=== PATIENT | male | born 1950 | race Caucasian/White ===

== ENCOUNTER 2017-07-29 04:39 | Inpatient (IN) | payer OTHER ==
[2017-07-29] VITALS (8 sets, daily range): BP systolic 116–151; BP diastolic 67–77; PULSE 65–76; TEMP 35–37; O2SAT 93–98; Ht 170.2 cm; Wt 78.6 kg
[~2017-07-29] VITALS: Ht 170.2 cm; Wt 78.6 kg
[2017-07-29] MEDS ORDERED: SODIUM CHLORIDE 0.9% 1000ML 1,000 ML IV STA (04:57)
[2017-07-29] MEDS ORDERED: SODIUM CHLORIDE 0.9% 500ML 500 ML IV STA (04:57)
[2017-07-29] MEDS ORDERED: PANTOprazole INJ 80 MG in DEXTROSE 5% 100ML 100 ML IV SCH (05:15)
[2017-07-29 05:24] LABS: BASO % 0.3 %; BASO ABS # 0.03 K/uL (0-0.2); EOS % 1.2 %; HEMATOCRIT 24.2 % (42-52); IG% 0.5 %; LYMPH % 11.1 %; LYMPH ABS # 1.33 K/uL (1.2-3.4); MEAN CELL VOLUME 84.6 fL (80-100); MEAN CORPUSCULAR HEMOGLOBIN 29.4 pg (25-34); MEAN CORPUSCULAR HGB CONC 34.7 g/dl (32-36); MEAN PLATELET VOLUME 8.2 fL (7.4-10.4); MONO % 8.3 %; NEUT % 78.6 %; PLATELET COUNT 217 K/uL (130-400); RED BLOOD COUNT 2.86 M/uL (4.7-6.1); WHITE BLOOD COUNT 11.99 K/uL (4.8-10.8)
[2017-07-29 05:41] LABS: ALT/SGPT 25 U/L (12-78); AST/SGOT 12 U/L (15-37); BLOOD UREA NITROGEN 30 mg/dl (7-18); BUN/CREATININE RATIO 27.2 (10-20); CALCIUM 7.8 mg/dl (8.5-10.1); CARBON DIOXIDE 28 mmol/L (21-32); CHLORIDE 108 mmol/L (98-107); GLUCOSE 166 mg/dl (70-99); MAGNESIUM 1.7 mg/dl (1.8-2.4); SODIUM 141 mmol/L (136-145)
[2017-07-29 05:43] LABS: ALKALINE PHOSPHATASE 108 U/L (45-117)
[2017-07-29 05:45] LABS: COMPLETE YES
[2017-07-29] MEDS ORDERED: GLC/500 PO (06:00)
[2017-07-29] MEDS ORDERED: LOSA50TA6 PO (06:00)
[2017-07-29] MEDS ORDERED: AMLO-110 PO (06:00)
[2017-07-29] MEDS ORDERED: HYDR25TA4 PO (06:00)
[2017-07-29] MEDS ORDERED: CHOL400C7 PO (06:00)
--- NOTE | 2017-07-29 06:01 | EMERGENCY ROOM VISIT NOTE ---
History Report prepared by Jeremy: Andre Rdz Under the Supervision of: Dr. Do Lindsay M.D. First contact with patient: 04:41 Chief Complaint: SYNCOPE Stated Complaint: SYNCOPE History of Present Illness The patient is a 66 year old male who presents to the Emergency Room by EMS with complaints of a syncopal episode occurring shortly prior to arrival. The patient currently complains of dizziness. He notes that he had diarrhea the past several days and states that he saw a large amount of "bright red" blood in his stool today. The patient states that he has had problems with rectal bleeding and hemorrhoids for several years. He states that he typically has an episode of rectal bleeding that fills most of the toilet bowel "a few times a year". He denies any vomiting or nausea. The patient states that he has not been drinking a lot of water recently, but has been eating normally. He has never required a blood transfusion in the past. Source of History: patient Onset: Shortly prior to arrival Quality: other (syncope) Timing: other (episode) Associated Symptoms: + hematochezia, + diarrhea, No nausea, No vomiting Note: The patient currently complains of dizziness. Review of Systems See HPI for pertinent positives & negatives. A total of 10 systems reviewed and were otherwise negative. Past Medical & Surgical Medical Problems: (1) Hemorrhoids (2) UGIB (upper gastrointestinal bleed) Family History No pertinent family history stated. Social History Marital Status: Housing Status: lives with significant other Current/Historical Medications Scheduled Amlodipine (Norvasc), 5 MG PO DAILY Cholecalciferol (Vitamin D 400 Iu), 400 INTER.UNIT PO DAILY Hydrochlorothiazide (Hctz), 25 MG PO DAILY Losartan Potassium (Cozaar), 50 MG PO DAILY Metformin Hcl (Glucophage), 500 MG PO BID Allergies Coded Allergies: No Known Allergies (Unverified , 07/29/17) Physical Exam Vital Signs Date Time Temp Pulse Resp B/P (MAP) Pulse Ox O2 Delivery O2 Flow Rate FiO2 07/29/17 05:24 62 14 07/29/17 05:10 76 16 145/72 07/29/17 05:10 145/72 07/29/17 05:09 78 135/72 07/29/17 05:09 132/72 135/72 07/29/17 05:08 70 132/72 07/29/17 04:49 94 Room Air 07/29/17 04:44 66 07/29/17 04:44 36.7 67 16 114/65 94 Room Air 07/29/17 04:42 114/65 Physical Exam Vital signs reviewed. General: Well-appearing male, in no significant distress. HEENT: No scleral icterus, Pale conjunctiva, PERRLA, neck supple. Atraumatic. Cardiovascular: Regular rate and rhythm, no extra sounds. Pulmonary: Clear to auscultation bilaterally, normal work of breathing. Abdomen: Soft, nontender, nondistended, positive bowel sounds. Rectal: Normal rectal mucosa. Melanotic stool. Heme positive. Musculoskeletal: Atraumatic, no peripheral edema. Neurologic: Patient awake alert and oriented x 3, full strength in all 4 extremities. Cranial nerves 2 through 12 grossly intact. Skin: Warm, dry, no rash Medical Decision & Procedures Laboratory Results Test 07/29/17 04:10 07/29/17 05:07 07/29/17 05:14 Estimated Average Glucose 131 mg/dl Hemoglobin A1c 6.2 % (4.5-5.6) Hepatitis C Antibody Screen NEG (NEG) Bedside Troponin I < 0.030 ng/ml (0-0.045) RDW Standard Deviation 38.9 fL (36.4-46.3) RDW Coefficient of Variation 12.6 % (11.5-14.5) White Blood Count 11.99 K/uL (4.8-10.8) Red Blood Count 2.86 M/uL (4.7-6.1) Hemoglobin 8.4 g/dL (14.0-18.0) Hematocrit 24.2 % (42-52) Mean Corpuscular Volume 84.6 fL (80-100) Mean Corpuscular Hemoglobin 29.4 pg (25-34) Mean Corpuscular Hemoglobin Concent 34.7 g/dl (32-36) Platelet Count 217 K/uL (130-400) Mean Platelet Volume 8.2 fL (7.4-10.4) Neutrophils (%) (Auto) 78.6 % Lymphocytes (%) (Auto) 11.1 % Monocytes (%) (Auto) 8.3 % Eosinophils (%) (Auto) 1.2 % Basophils (%) (Auto) 0.3 % Neutrophils # (Auto) 9.44 K/uL (1.4-6.5) Lymphocytes # (Auto) 1.33 K/uL (1.2-3.4) Monocytes # (Auto) 0.99 K/uL (0.11-0.59) Eosinophils # (Auto) 0.14 K/uL (0-0.5) Basophils # (Auto) 0.03 K/uL (0-0.2) Immature Granulocyte % (Auto) 0.5 % Immature Granulocyte # (Auto) 0.06 K/uL (0.00-0.02) Red Blood Cell Morphology Unremarkable Prothrombin Time 10.2 SECONDS (9.0-12.0) Prothromb Time International Ratio 1.0 (0.9-1.1) Activated Partial Thromboplast Time 23.6 SECONDS (21.0-31.0) Partial Thromboplastin Ratio 0.9 Est Creatinine Clear Calc Drug Dose 66.6 ml/min Magnesium Level 1.7 mg/dl (1.8-2.4) Total Bilirubin 0.5 mg/dl (0.2-1) Direct Bilirubin < 0.1 mg/dl (0-0.2) Aspartate Amino Transf (AST/SGOT) 12 U/L (15-37) Alanine Aminotransferase (ALT/SGPT) 25 U/L (12-78) Alkaline Phosphatase 108 U/L (45-117) Troponin I < 0.015 ng/ml (0-0.045) Total Protein 5.1 gm/dl (6.4-8.2) Albumin 2.7 gm/dl (3.4-5.0) Thyroid Stimulating Hormone (TSH) 1.860 uIu/ml (0.300-4.500) Laboratory results per my review. Medications Administered Medications (Trade) Dose Ordered Sig/Sotero Route Start Time Stop Time Status Last Admin Dose Admin Sodium Chloride 500 ml @ 999 mls/hr Q31M STAT IV 07/29/17 04:57 07/29/17 05:27 DC 07/29/17 04:57 999 MLS/HR Sodium Chloride 1,000 ml @ 200 mls/hr Q5H STAT IV 07/29/17 04:57 07/29/17 08:07 DC 07/29/17 04:57 200 MLS/HR Pantoprazole Sodium 80 mg/ Dextrose 120 ml @ 400 mls/hr NOW IV 07/29/17 05:15 07/29/17 08:07 DC 07/29/17 05:48 400 MLS/HR Sodium Chloride 1,000 ml @ 60 mls/hr [id number] IV 07/29/17 06:35 08/28/17 06:34 07/30/17 00:03 60 MLS/HR ECG Indication: syncope Rate (beats per minute): 67 Rhythm: normal sinus Findings: no acute ischemic change, no ectopy, other (Non-specific T-wave flattening in the inferior and lateral leads. ) Comparison ECG Date: no prior available ED Course 0500: Past medical records reviewed. The patient was evaluated in room B12B. A complete history and physical examination was performed. Ordered Sodium Chloride 1000 ml @ 200 mls/hr IV, Sodium Chloride 500 ml @ 999 mls/hr IV. 0515: Ordered Pantoprazole Sodium 80 mg/Dextrose 120 mL @ 400 mL/hr IV. 0555: Upon reevaluation, the patient is resting comfortably. I discussed laboratory and radiographic results with him. He verbalized agreement of the treatment plan. I spoke with Dr. Goff of the [facility]. The patient will be evaluated for further management and care. Medical Decision Differential diagnosis: Etiologies such as diverticulosis, AVM, coagulopathy, colitis, inflammatory bowel disease, malignancy, Perla-William tear, esophagitis, peptic ulcer disease , variceal bleed, gastritis, epistaxis, fissure, hemorrhoids, as well as others were entertained. This patient was evaluated and appeared to be in no significant distress. Patient's physical examination is consistent with melanotic guaiac positive stool. Patient states he does have episodes 3-4 times a day year with blood in the toilet after a BM. He believed it was related to hemorrhoids. I suspect the patient is suffering from an upper GI bleed. He is type and cross for 2 units to hold. IV Protonix 80 mg was given as well as IV normal saline solution. The patient was informed of the findings. He was evaluated by the hospitalist service for further management. Consults Time Called: [phone] Consulting Physician: Dr. Denver Kyle Returned Call: [phone] I reviewed the patient's case with Dr. Goff. Charisma will evaluate the patient for further management. Impression Primary Impression: Upper GI bleed Additional Impression: Syncope Scribe Attestation The scribe's documentation has been prepared under my direction and personally reviewed by me in its entirety. I confirm that the note above accurately reflects all work, treatment, procedures, and medical decision making performed by me. Departure Information Dispostion Being Evaluated By Hospitalist Patient Instructions [facility] Problem Qualifiers
[2017-07-29 06:44] LABS: PARTIAL THROMBOPLASTIN RATIO 0.9; PROTHROMBIN TIME (PATIENT) 10.2 SECONDS (9.0-12.0)
[2017-07-29] MEDS ORDERED: GLUCOSE 10 TABS/TUBE PO PRN (06:45)
[2017-07-29] MEDS ORDERED: GLUCOSE 40% GEL 15 GM TUBE PO PRN (06:45)
[2017-07-29] MEDS ORDERED: ACETAMINOPHEN 325 MG TAB PO PRN (06:45)
[2017-07-29] MEDS ORDERED: GLUCAGON FOR INJ 1 MG VIAL SQ PRN (06:45)
[2017-07-29] MEDS ORDERED: NITROGLYCERIN 0.4 MG SL PER TAB CHARGE SL PRN (06:45)
[2017-07-29] MEDS ORDERED: DEXTROSE 50% 50 ML SYR IV PRN (06:45)
[2017-07-29] MEDS ORDERED: LORAZEPAM 2 MG/ML 1 ML VIAL IV PRN (06:45)
[2017-07-29] MEDS ORDERED: ONDANSETRON INJ 2 MG/ML 2 ML VIAL IV PRN (06:45)
[2017-07-29] MEDS ORDERED: TRAMADOL HCL 50 MG TAB PO PRN (06:45)
[2017-07-29 07:25] LABS: ESTIMATED AVERAGE GLUCOSE 131 mg/dl; HA1C FLAG Normal (Normal)
--- NOTE | 2017-07-29 07:53 | DIAGNOSTIC IMAGING REPORT ---
HEAD CT NONCONTRAST CT DOSE: 690.05 mGycm HISTORY: syncope, lightheadedness TECHNIQUE: Multiaxial CT images of the head were performed without the use of intravenous contrast. Automated exposure control was utilized for this study. A dose lowering technique was utilized adhering to the principles of ALARA. Comparison: None. Findings: The paranasal sinuses and mastoid air cells are clear. The calvarium and skull base are intact. The ventricles and sulci are within normal limits. There is no mass, hematoma, midline shift, or acute infarct. Impression: No acute intracranial abnormality. Electronically signed by: Virgilio Tsang M.D. 07/29/2017 7:52 AM Dictated Date/Time: 07/29/2017 7:43 AM
--- NOTE | 2017-07-29 08:09 | HISTORY & PHYSICAL EXAMINATION ---
DATE OF ADMISSION: 07/29/2017 PRIMARY CARE PHYSICIAN: Dr. Morfin. CHIEF COMPLAINT: Syncope, dark tarry stools. HISTORY OF PRESENT ILLNESS: Medical history is significant for hypertension, prediabetes. hx colonic diverticulosis and polyps. Few days history of illness, dark tarry stools, no chest pain, no shortness of breath, lightheadedness. No abdominal pain. Denies inordinate weight loss. Patient went to the bathroom this morning. Px felt lightheaded ,passed out for about a minute when he tried to get up from the commode. Fell backwards. No incontinence, no tongue biting. Patient brought to the Emergency Room. Protonix bolus given for UGIB. MEDICAL HISTORY: In 2014, colonoscopy showed polyps, diverticulosis. HOME MEDICATIONS: Include, OTC aspirin daily, amlodipine, metformin, losartan, HCTZ, vitamin B. ALLERGIES: No known drug allergies. FAMILY HISTORY: Hypertension. PERSONAL AND SOCIAL HISTORY: Nonsmoker. No EtOH intake, Retired group insurance specialist. REVIEW OF SYSTEMS: As per HPI, all other ROS negative. PHYSICAL EXAMINATION: VITAL SIGNS: Blood pressure was noted to be 135/72, pulse rate 70, RR 16, temperature 36.7, sats 94 on room air. Orthostatic vitals negative. GENERAL: Noted to be pleasant, no respiratory distress. SKIN: Pallor. HEENT: Pale palpebral conjunctivae. Dry mucosa. Alopecia. NECK: No JVD. Supple. CHEST: Clear to auscultation. HEART: Regular rate and rhythm. ABDOMEN: Soft. EXTREMITIES: No edema, no tenderness. NEUROLOGIC: No gross focality. LABORATORY DATA: Hemoglobin was noted to be 8.4, hematocrit 34.2, white cell count 11.9, platelets 217. Sodium 140, potassium 4, chloride 108, CO2 28, BUN 30, creatinine 1.1, glucose 106 Hemoglobin A1c from March 2017 was 6.3. ASSESSMENT: 1. painless Upper gastrointestinal bleed, differentials include : PUD, abn blood vessels, tumor 2. Symptomatic anemia secondary to above. 3. Syncope secondary to hypovolemia albeit negative orthostatic vitals Rule out cardiac dysfunction Hx colonic diverticulosis, polyposis 4. Hypertension, stable. 5. Prediabetes. PLAN: PCU PPI drip for UGIB. GI consult. RE UGIB Transfuse packed RBCs for symptomatic anemia. Anemia workup. Hold home aspirin. TTE re syncope DVT prophylaxis, SCDs RE UGIB Full code. MTDD
[2017-07-29] MEDS ORDERED: MAGNESIUM SULFATE 1GM / D5W 1 GM in PREMIXED IN D5W 100 ML IV ONE (08:30)
[2017-07-29] MEDS: SODIUM CHLORIDE 0.45% 1000ML 1,000 ML IV SCH (09:05)
[2017-07-29] MEDS: AMLODIPINE BESYLATE 5 MG TAB PO SCH (09:06)
[2017-07-29] MEDS: PANTOprazole INJ 40 MG in DEXTROSE 5% 100ML 100 ML IV SCH ×2 (09:56→13:53)
[2017-07-29] MEDS ORDERED: INFLUENZA ADMINISTRATION CHARGE ONE (10:00)
[2017-07-29] MEDS ORDERED: INFLUENZA VACCINE HIGH DOSE 65+ 0.5 ML SYR IM. ONE (10:00)
--- NOTE | 2017-07-29 11:01 | ECHOCARDIOGRAM REPORT ---
*NOTICE TO RECEIVING [employer]Y This information is strictly Confidential and protected under [place] law. [place] law prohibits you from making any further disclosure of this information unless further disclosure is expressly permitted by the written consent of the person to whom it pertains or is authorized by law. A general authorization for the release of medical or other information is not sufficient for this purpose. Hospital accepts no responsibility if the information is made available to any other person, INCLUDING THE PATIENT. Interpretation Summary * Name: EDILSON GARCIA Study Date: 07/29/2017 08:11 AM BP: 145/72 mmHg * [facility] HR: 66 * : 1950 (M/d/yyyy) Gender: Male Height: 67 in * Age: 66 yrs Ethnicity: [place] Weight: 185 lb * Ordering Physician: Edilson Goff * Performed By: Gudelia Vale * * Reason For Study: SYNCOPE * BSA: 2.0 m2 * -- Conclusions -- * The left ventricle is normal in size. * There is moderate concentric left ventricular hypertrophy. * The left ventricular wall motion is normal. * Left ventricular systolic function is normal. * Ejection Fraction = 60-65%. * Grade I diastolic dysfunction, (abnormal relaxation pattern). * There is no vavlular disease Procedure Details * A complete two-dimensional transthoracic echocardiogram was performed (2D, M-mode, Doppler and color flow Doppler). Left Ventricle * The left ventricle is normal in size. * There is moderate concentric left ventricular hypertrophy. * Ejection Fraction = 60-65%. * Left ventricular systolic function is normal. * The left ventricular wall motion is normal. Right Ventricle * The right ventricle is normal in size and function. Atria * The left atrial size is normal. * Right atrial size is normal. * No ASD detected; PFO is not assessed. Mitral Valve * The mitral valve anatomy is normal. * There is no mitral valve stenosis. * There is trace mitral regurgitation. Tricuspid Valve * The tricuspid valve anatomy is normal. * There is no tricuspid stenosis. * There is trace tricuspid regurgitation. Aortic Valve * The aortic valve is trileaflet. * No hemodynamically significant valvular aortic stenosis. * No aortic regurgitation is present. Pulmonic Valve * The pulmonic valve is not well visualized. Great Vessels * The aortic root is normal size. Pericardium/Pleural * There is no pericardial effusion. Great Vessels * Normal inferior vena cava diameter and respiratory variation suggests normal central venous pressure. Left Ventricular Diastolic Function * Grade I diastolic dysfunction, (abnormal relaxation pattern). MMode 2D Measurements and Calculations IVSd 2.0 cm IVSs 2.8 cm LVIDd 4.7 cm LVIDs 3.3 cm LVPWd 1.3 cm LVPWs 1.8 cm IVS/LVPW 1.6 FS 29.6 % EDV(Teich) 101.9 ml ESV(Teich) 44.2 ml EF(Teich) 56.6 % EDV(cubed) 103.3 ml ESV(cubed) 36.0 ml EF(cubed) 65.1 % % IVS thick 38.1 % % LVPW thick 40.2 % LV mass(C)d 336.4 grams LV mass(C)dI 172.0 grams/m\S\2 LV mass(C)s 374.7 grams LV mass(C)sI 191.6 grams/m\S\2 SV(Teich) 57.7 ml SI(Teich) 29.5 ml/m\S\2 SV(cubed) 67.3 ml SI(cubed) 34.4 ml/m\S\2 ACS 2.0 cm LA dimension 4.0 cm asc Aorta Diam 3.6 cm LVOT diam 2.0 cm LVOT area 3.3 cm\S\2 LVAd ap4 32.2 cm\S\2 LVLd ap4 8.3 cm EDV(MOD-sp4) 105.8 ml EDV(sp4-el) 106.5 ml LVAs ap4 18.6 cm\S\2 LVLs ap4 6.7 cm ESV(MOD-sp4) 43.5 ml ESV(sp4-el) 43.9 ml EF(MOD-sp4) 58.9 % EF(sp4-el) 58.8 % LVAd ap2 25.7 cm\S\2 LVLd ap2 7.8 cm EDV(MOD-sp2) 74.6 ml EDV(sp2-el) 72.3 ml LVAs ap2 15.4 cm\S\2 LVLs ap2 6.6 cm ESV(MOD-sp2) 30.0 ml ESV(sp2-el) 30.3 ml EF(MOD-sp2) 59.8 % EF(sp2-el) 58.2 % LVLd %diff -6.15 % EDV(MOD-bp) 92.2 ml LVLs %diff -1.43 % ESV(MOD-bp) 36.3 ml EF(MOD-bp) 60.7 % SV(MOD-sp4) 62.3 ml SI(MOD-sp4) 31.9 ml/m\S\2 SV(MOD-sp2) 44.6 ml SI(MOD-sp2) 22.8 ml/m\S\2 SV(MOD-bp) 56.0 ml SI(MOD-bp) 28.6 ml/m\S\2 SV(sp4-el) 62.6 ml SI(sp4-el) 32.0 ml/m\S\2 SV(sp2-el) 42.1 ml SI(sp2-el) 21.5 ml/m\S\2 Doppler Measurements and Calculations MV E max samira 55.0 cm/sec MV A max samira 109.5 cm/sec MV E/A 0.50 MV dec time 0.22 sec Ao V2 max 137.2 cm/sec Ao max PG 7.5 mmHg Ao max PG (full) 2.9 mmHg TIMOTEO(V,A) 2.6 cm\S\2 TIMOTEO(V,D) 2.6 cm\S\2 AI max samira 356.1 cm/sec AI max PG 50.7 mmHg AI dec slope 114.1 cm/sec\S\2 AI P1/2t 914.4 msec LV V1 max PG 4.6 mmHg LV V1 max 107.3 cm/sec PA V2 max 79.8 cm/sec PA max PG 2.5 mmHg TR max samira 250.3 cm/sec
[2017-07-29] MEDS: INSULIN ASPART 100 UNITS/ML 3 ML PEN SC SCH ×3 (12:00→20:31)
[2017-07-29 12:11] LABS: URINE APPEARANCE CLEAR (CLEAR); URINE BILIRUBIN NEG (NEG); URINE COLOR YELLOW; URINE NITRITE NEG (NEG); UROBILINOGEN NEG (NEG); ZZUR CULT IF INDIC CLEAN CATCH NO
[2017-07-29 12:14] LABS: MANUAL MICROSCOPIC REQUIRED? NO; REVIEW REQ? NO
--- NOTE | 2017-07-29 12:18 | Gastrointestinal Consultation ---
Gastrointestinal Consultation Date of Consultation: Jul 29, 2017 Attending Physician: Srikanth Montero Consulting Physician: Eric Mosqueda Reason for Consultation: UGI bleed History of Present Illness Patient is a 66 year old male w PMH of colon polyps, diverticulosis, HTN, DM who presented to ED w c/o dark tarry stools w bright red blood. 2 days ago he started to notice loose stools also of dark and tarry in characteristic. He said and granddaughter had the "flu" one developing pneumonia but he denies any URI symptoms. He denies any fever, chills, n/v, abd pain. He noticed bright red blood on top of stools recently. Denies any rectal pain or itching. Did have hx of hemorrhoidal bleed. This morning got up to bathroom, started to feel light headed, fell backwards and passed out ? a minute. Upon eval in ED, he was noted to be anemic, Hgb 8, baseline 15 in March. BUN up at 30. Some electrolyte imbalance including low Ca, Mg. Cr, LFTs normal. He is admitted, 1U PRBC transfusing, PPI bolus and gtt started, and made NPO for possible UGI bleeding. Head CT negative. He had Colonoscopy in 2014 w hyperplastic polyps removal, and diverticulosis but due to excessive looping, at hepatic flexure, scope can't be advanced. He later underwent virtual colonoscopy which was unremarkable. Prior to 2014, he also had hx of rectal bleeding, had colonoscopy in 2002 showing diverticulosis and hemorrhoids. Pt takes ASA 81mg daily, but denies NSAIDs, ETOH or tobacco abuses. + 10 lbs weight loss in 4 months, but he said this was intentional as told by PCP to lose weight. Past Medical/Surgical History Medical Problems: (1) Syncope Status: Acute (2) Upper GI bleed Status: Acute Past Medical History: See above. Past Surgical History: None per his report. Social History Smoking Status: Never Smoker Alcohol Use: occasionally Drug Use: none Marital Status: Housing Status: lives with significant other Allergies Coded Allergies: No Known Allergies (Unverified , 07/29/17) Current Medications Home Meds and Scripts Medications Dose Route/Sig Max Daily Dose Days Date Category Vitamin D 400 Iu (Cholecalciferol) 400 Unit Cap 400 Inter.unit PO DAILY 07/29/17 Reported Hctz (Hydrochlorothiazide) 25 Mg Tab 25 Mg PO DAILY 07/29/17 Reported Glucophage (Metformin Hcl) 500 Mg Tab 500 Mg PO BID 07/29/17 Reported Cozaar (Losartan Potassium) 50 Mg Tab 50 Mg PO DAILY 07/29/17 Reported Norvasc (Amlodipine Besylate) 5 Mg Tab 5 Mg PO DAILY 07/29/17 Reported Review of Systems Constitutional: No fever, No chills Respiratory: No cough, No shortness of breath Cardiac: No chest pain Abdomen: + see HPI, + diarrhea, + GI bleeding, No pain, No nausea, No vomiting Neuro: + see HPI Skin: No rash Physical Exam Date Time Temp Pulse Resp B/P (MAP) Pulse Ox O2 Delivery O2 Flow Rate FiO2 07/29/17 10:55 37.0 70 15 116/74 97 Room Air 07/29/17 10:55 37.0 65 15 116/74 97 07/29/17 10:25 36.8 69 16 116/72 95 07/29/17 09:55 36.8 69 16 123/75 95 07/29/17 09:40 35.0 70 18 118/67 95 07/29/17 09:25 36.4 76 18 117/75 07/29/17 07:54 36.6 70 18 132/75 (94) 95 Room Air 07/29/17 07:38 66 20 145/72 96 07/29/17 07:05 98 Room Air 07/29/17 06:43 65 16 140/72 98 Room Air 07/29/17 05:24 62 14 07/29/17 05:10 76 16 145/72 07/29/17 05:10 145/72 07/29/17 05:09 78 135/72 07/29/17 05:09 132/72 135/72 07/29/17 05:08 70 132/72 07/29/17 04:49 94 Room Air 07/29/17 04:44 66 07/29/17 04:44 36.7 67 16 114/65 94 Room Air 07/29/17 04:42 114/65 General Appearance: WD/WN, no apparent distress Eyes: normal inspection, PERRL, EOMI Neck: supple, no JVD, trachea midline Respiratory/Chest: normal breath sounds, no respiratory distress, no accessory muscle use Cardiovascular: regular rate, rhythm, no gallop, no murmur Abdomen: normal bowel sounds, non tender, soft, + pertinent finding (rectal exam by ED physician revealed melanotic stool; pt wants to defer repeat rectal exam ) Neurologic/Psych: alert, normal mood/affect, oriented x 3 Skin: normal color, no jaundice, no rash Laboratory Results Last 24 Hours Test 07/29/17 04:10 07/29/17 05:14 07/29/17 11:50 07/29/17 12:00 Estimated Average Glucose 131 mg/dl Hemoglobin A1c 6.2 % Hepatitis C Antibody Screen NEG White Blood Count 11.99 K/uL Red Blood Count 2.86 M/uL Hemoglobin 8.4 g/dL Hematocrit 24.2 % Mean Corpuscular Volume 84.6 fL Mean Corpuscular Hemoglobin 29.4 pg Mean Corpuscular Hemoglobin Concent 34.7 g/dl Platelet Count 217 K/uL Mean Platelet Volume 8.2 fL Neutrophils (%) (Auto) 78.6 % Lymphocytes (%) (Auto) 11.1 % Monocytes (%) (Auto) 8.3 % Eosinophils (%) (Auto) 1.2 % Basophils (%) (Auto) 0.3 % Neutrophils # (Auto) 9.44 K/uL Lymphocytes # (Auto) 1.33 K/uL Monocytes # (Auto) 0.99 K/uL Eosinophils # (Auto) 0.14 K/uL Basophils # (Auto) 0.03 K/uL RDW Standard Deviation 38.9 fL RDW Coefficient of Variation 12.6 % Immature Granulocyte % (Auto) 0.5 % Immature Granulocyte # (Auto) 0.06 K/uL Red Blood Cell Morphology Unremarkable Prothrombin Time 10.2 SECONDS Prothromb Time International Ratio 1.0 Activated Partial Thromboplast Time 23.6 SECONDS Partial Thromboplastin Ratio 0.9 Sodium Level 141 mmol/L Potassium Level 4.0 mmol/L Chloride Level 108 mmol/L Carbon Dioxide Level 28 mmol/L Anion Gap 5.0 mmol/L Blood Urea Nitrogen 30 mg/dl Creatinine 1.10 mg/dl Est Creatinine Clear Calc Drug Dose 66.6 ml/min Estimated GFR () 79.5 Estimated GFR (Non- 68.6 BUN/Creatinine Ratio 27.2 Random Glucose 166 mg/dl Calcium Level 7.8 mg/dl Magnesium Level 1.7 mg/dl Total Bilirubin 0.5 mg/dl Direct Bilirubin < 0.1 mg/dl Aspartate Amino Transf (AST/SGOT) 12 U/L Alanine Aminotransferase (ALT/SGPT) 25 U/L Alkaline Phosphatase 108 U/L Troponin I < 0.015 ng/ml Total Protein 5.1 gm/dl Albumin 2.7 gm/dl Thyroid Stimulating Hormone (TSH) 1.860 uIu/ml Impression Patient is a 66 year old male who presented w syncopal episode this AM, noted to be anemic w hx of diarrhea, melena & BRBPR. He had been treated w PPI bolus & gtt for suspected UGI bleed, made NPO and started on 1U PRBC transfusion. Hx of diverticular & hemorrhoidal diseases. DDX: diverticular/hermorrhoidal bleeding, infectious or ischemic colitis, PUD w bleeding ulcer, less likely AVMs or malignancy. Plan - Keep NPO for EGD today - Continue PPI gtt for now - Obtain stool cx and Cdiff given diarrhea and family being ill w "flu". - Will give further recs after EGD completed. - Monitor H/H and transfuse prn Attg addendu: I ireviewed chart and labs, interviewed and examined pt. Presentation concerning for UGIB. EGD today.
[2017-07-29 12:27] LABS: HEMATOCRIT 28.4 % (42-52)
[2017-07-29 12:59] LABS: FERRITIN 150.8 ng/ml (8.0-388.0)
--- NOTE | 2017-07-29 15:28 | GI REPORT ---
Procedure Date: 07/29/2017 3:10 PM Procedure: Upper GI endoscopy Indications: Melena Medicines: See the Anesthesia note for documentation of the administered medications Complications: No immediate complications. Estimated Blood Loss: Estimated blood loss: none. Procedure: Pre-Anesthesia Assessment: - ASA Grade Assessment: II - A patient with mild systemic disease. - After reviewing the risks and benefits, the patient was deemed in satisfactory condition to undergo the procedure. After obtaining informed consent, the endoscope was passed under direct vision. Throughout the procedure, the patient's blood pressure, pulse, and oxygen saturations were monitored continuously. The scope was introduced through the mouth, and advanced to the second part of duodenum. The upper GI endoscopy was accomplished without difficulty. The patient tolerated the procedure well. Findings: The examined esophagus was normal. The Z-line was found 37 cm from the incisors. There was a round gastric erosion in the antrum, suggestive of a healing gastric ulcer. 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 The stomach was otherwise normal. The erosion was biopsied, and random biopsies done from throughout the stomach to check for Hp. The duodenum was normal. Impression: -Erosion in stomach. Recommendation: - Discharge patient to floor. D/c PPI gtt and adv diet. Ok for d/c home tomorrow on once daily PPI if no evidence of further bleeding. Plan outpt cscopy and repeat EGD in 4 weeks. Eric Mosqueda M.D. Eric Mosqueda MD 07/29/2017 3:28:08 PM This report has been signed electronically. Note Initiated On: 07/29/2017 3:10 PM I attest to the content of the Intraoperative Record and orders documented therein, exceptions below
[2017-07-29] MEDS ORDERED: PROPOFOL IV EMULSION 10 MG/ML 20 ML VIAL IV ONE (15:31)
[2017-07-29] MEDS ORDERED: LIDOCAINE HCL 2% 2 ML VIAL (20MG/ML) ONE (15:31)
--- NOTE | 2017-07-29 16:07 | Anesthesiology Progress Note ---
Anesthesia Post Op Note Date & Time Jul 29, 2017 at 16:07 Vital Signs Pain Intensity: 0.0 Vital Signs Past 12 Hours Date Time Temp Pulse Resp B/P (MAP) Pulse Ox O2 Delivery O2 Flow Rate FiO2 07/29/17 15:58 66 16 119/70 (86) 95 Room Air 07/29/17 15:43 68 16 112/63 (79) 93 Room Air 07/29/17 15:28 72 16 106/56 (73) 95 Room Air 07/29/17 14:43 36.5 95 18 148/78 (101) 92 Room Air 95 07/29/17 12:30 Room Air 07/29/17 10:55 37.0 70 15 116/74 97 Room Air 07/29/17 10:55 37.0 65 15 116/74 97 07/29/17 10:25 36.8 69 16 116/72 95 07/29/17 09:55 36.8 69 16 123/75 95 07/29/17 09:40 35.0 70 18 118/67 95 07/29/17 09:25 36.4 76 18 117/75 07/29/17 07:54 36.6 70 18 132/75 (94) 95 Room Air 07/29/17 07:38 66 20 145/72 96 07/29/17 07:05 98 Room Air 07/29/17 06:43 65 16 140/72 98 Room Air 07/29/17 05:24 62 14 07/29/17 05:10 76 16 145/72 07/29/17 05:10 145/72 07/29/17 05:09 78 135/72 07/29/17 05:09 132/72 135/72 07/29/17 05:08 70 132/72 07/29/17 04:49 94 Room Air 07/29/17 04:44 66 07/29/17 04:44 36.7 67 16 114/65 94 Room Air 07/29/17 04:42 114/65 Notes Mental Status: alert / awake / arousable, participated in evaluation Pt Amnestic to Procedure: Yes Nausea / Vomiting: adequately controlled Pain: adequately controlled Airway Patency, RR, SpO2: stable & adequate BP & HR: stable & adequate Hydration State: stable & adequate Anesthetic Complications: no major complications apparent
[2017-07-29] MEDS ORDERED: NURSING VERBAL MED ORDER ONE (17:30)
--- NOTE | 2017-07-29 18:02 | Progress Note ---
Internal Med Progress Note Date of Service: Jul 29, 2017. Provider Documentation: SUBJECTIVE: Seen and examined at bedside Had EGD today Denies any more bleeding issues Denies CP/SOB/Abdominal pain/weakness/ change in vision Dizziness better Family at bedside OBJECTIVE: Vital Signs-as noted below Physical Exam: General Appearance:Moderately built and nourished, no apparent distress Head: normocephalic, Atraumatic Eyes: normal inspection, EOMI, PERRL Neck: supple, Trachea midline Respiratory/Chest: Normal breath sounds, CTA Cardiovascular: S1, S2, No murmur Abdomen/GI:Soft, Non tender, Bowel sounds present Extremities/Musculoskelatal:normal inspection, no edema Neurologic/Psych:grossly no focal neurological deficits Skin: normal color, warm Lab data as noted below. ASSESSMENT & PLAN: Upper GI bleeding: S/P EGD: Gastric erosion in antrum suggestive of healing gastric ulcer S/P 1 unit PRBC no bleeding issues currently Monitor Hb PPI GGT discontinued Continue PPI Q daily Planned for repeat EGD and colonoscopy in 4 weeks Appreciate GI help Syncope: Likely vasovagal/Hypovolemia CT head: no acute pathology Denies any neurological symptoms Negative orthostatics Monitor in Tele Hypertension: stable. Prediabetes: ISS, accu checks DVT Px: SCDs RE UGIB Code Status: Full code Disposition: Plan to discharge home when medically stable Vital Signs: Date Time Temp Pulse Resp B/P (MAP) Pulse Ox O2 Delivery O2 Flow Rate FiO2 07/29/17 16:15 Room Air 07/29/17 15:58 66 16 119/70 (86) 95 Room Air 07/29/17 15:43 68 16 112/63 (79) 93 Room Air 07/29/17 15:28 72 16 106/56 (73) 95 Room Air 07/29/17 14:43 36.5 95 18 148/78 (101) 92 Room Air 07/29/17 12:30 Room Air 07/29/17 10:55 37.0 70 15 116/74 97 Room Air 07/29/17 10:55 37.0 65 15 116/74 97 07/29/17 10:25 36.8 69 16 116/72 95 07/29/17 09:55 36.8 69 16 123/75 95 07/29/17 09:40 35.0 70 18 118/67 95 07/29/17 09:25 36.4 76 18 117/75 07/29/17 07:54 36.6 70 18 132/75 (94) 95 Room Air 07/29/17 07:38 66 20 145/72 96 07/29/17 07:05 98 Room Air 07/29/17 06:43 65 16 140/72 98 Room Air 07/29/17 05:24 62 14 07/29/17 05:10 76 16 145/72 07/29/17 05:10 145/72 07/29/17 05:09 78 135/72 07/29/17 05:09 132/72 135/72 07/29/17 05:08 70 132/72 07/29/17 04:49 94 Room Air 07/29/17 04:44 66 07/29/17 04:44 36.7 67 16 114/65 94 Room Air 07/29/17 04:42 114/65 Lab Results: Results Past 24 Hours Test 07/29/17 04:10 07/29/17 05:07 07/29/17 05:14 07/29/17 11:50 Range/Units Estimated Average Glucose 131 mg/dl Hemoglobin A1c 6.2 4.5-5.6 % Hepatitis C Antibody Screen NEG NEG Bedside Troponin I < 0.030 0-0.045 ng/ml White Blood Count 11.99 4.8-10.8 K/uL Red Blood Count 2.86 4.7-6.1 M/uL Hemoglobin 8.4 14.0-18.0 g/dL Hematocrit 24.2 42-52 % Mean Corpuscular Volume 84.6 80-100 fL Mean Corpuscular Hemoglobin 29.4 25-34 pg Mean Corpuscular Hemoglobin Concent 34.7 32-36 g/dl Platelet Count 217 130-400 K/uL Mean Platelet Volume 8.2 7.4-10.4 fL Neutrophils (%) (Auto) 78.6 % Lymphocytes (%) (Auto) 11.1 % Monocytes (%) (Auto) 8.3 % Eosinophils (%) (Auto) 1.2 % Basophils (%) (Auto) 0.3 % Neutrophils # (Auto) 9.44 1.4-6.5 K/uL Lymphocytes # (Auto) 1.33 1.2-3.4 K/uL Monocytes # (Auto) 0.99 0.11-0.59 K/uL Eosinophils # (Auto) 0.14 0-0.5 K/uL Basophils # (Auto) 0.03 0-0.2 K/uL RDW Standard Deviation 38.9 36.4-46.3 fL RDW Coefficient of Variation 12.6 11.5-14.5 % Immature Granulocyte % (Auto) 0.5 % Immature Granulocyte # (Auto) 0.06 0.00-0.02 K/uL Red Blood Cell Morphology Unremarkable Prothrombin Time 10.2 9.0-12.0 SECONDS Prothromb Time International Ratio 1.0 0.9-1.1 Activated Partial Thromboplast Time 23.6 21.0-31.0 SECONDS Partial Thromboplastin Ratio 0.9 Sodium Level 141 136-145 mmol/L Potassium Level 4.0 3.5-5.1 mmol/L Chloride Level 108 98-107 mmol/L Carbon Dioxide Level 28 21-32 mmol/L Anion Gap 5.0 3-11 mmol/L Blood Urea Nitrogen 30 7-18 mg/dl Creatinine 1.10 0.60-1.40 mg/dl Est Creatinine Clear Calc Drug Dose 66.6 ml/min Estimated GFR () 79.5 Estimated GFR (Non- 68.6 BUN/Creatinine Ratio 27.2 10-20 Random Glucose 166 70-99 mg/dl Calcium Level 7.8 8.5-10.1 mg/dl Magnesium Level 1.7 1.8-2.4 mg/dl Total Bilirubin 0.5 0.2-1 mg/dl Direct Bilirubin < 0.1 0-0.2 mg/dl Aspartate Amino Transf (AST/SGOT) 12 15-37 U/L Alanine Aminotransferase (ALT/SGPT) 25 12-78 U/L Alkaline Phosphatase 108 45-117 U/L Troponin I < 0.015 0-0.045 ng/ml Total Protein 5.1 6.4-8.2 gm/dl Albumin 2.7 3.4-5.0 gm/dl Thyroid Stimulating Hormone (TSH) 1.860 0.300-4.500 uIu/ml Urine Color YELLOW Urine Appearance CLEAR CLEAR Urine pH 5.0 4.5-7.5 Urine Specific [place] 1.020 1.000-1.030 Urine Protein NEG NEG Urine Glucose (UA) 1+ NEG Urine Ketones NEG NEG Urine Occult Blood NEG NEG Urine Nitrite NEG NEG Urine Bilirubin NEG NEG Urine Urobilinogen NEG NEG Urine Leukocyte Esterase NEG NEG Test 07/29/17 11:56 07/29/17 12:16 07/29/17 16:28 Range/Units Bedside Glucose 144 118 70-99 mg/dl Hemoglobin 9.9 14.0-18.0 g/dL Hematocrit 28.4 42-52 % Absolute Reticulocyte Count 0.08 0.02-0.10 10^6/uL Percent Reticulocyte Count 2.2 0.5-2.0 % Iron Level 49 35-175 mcg/dl Total Iron Binding Capacity 256 250-450 mcg/dl Transferrin 182 200-360 mg/dl Transferrin % Saturation 19 20-50 % Ferritin 150.8 8.0-388.0 ng/ml Vitamin B12 Level 206 211-911 pg/mL Folate 22.95 >5.38 ng/mL
[2017-07-29 19:38] LABS: HEMATOCRIT 27.2 % (42-52)
[2017-07-29] MEDS: LOSARTAN POTASSIUM 25 MG TAB PO SCH (20:51)
[2017-07-30] VITALS (10 sets, daily range): BP systolic 124–137; BP diastolic 70–84; PULSE 66–107; TEMP 36.8–37.4; O2SAT 91–98
[2017-07-30] MEDS: SODIUM CHLORIDE 0.45% 1000ML 1,000 ML IV SCH (00:03)
[2017-07-30] MEDS: INSULIN ASPART 100 UNITS/ML 3 ML PEN SC SCH ×4 (06:30→21:00)
[2017-07-30] MEDS ORDERED: NURSING VERBAL MED ORDER ONE (07:00)
[2017-07-30 07:26] LABS: BASO % 0.2 %; BASO ABS # 0.02 K/uL (0-0.2); EOS % 1.2 %; HEMATOCRIT 24.6 % (42-52); IG% 0.4 %; LYMPH % 15.8 %; LYMPH ABS # 1.44 K/uL (1.2-3.4); MEAN CELL VOLUME 83.7 fL (80-100); MEAN CORPUSCULAR HEMOGLOBIN 29.3 pg (25-34); MEAN PLATELET VOLUME 8.1 fL (7.4-10.4); MONO % 8.3 %; NEUT % 74.1 %; PLATELET COUNT 204 K/uL (130-400); RED BLOOD COUNT 2.94 M/uL (4.7-6.1); WHITE BLOOD COUNT 9.11 K/uL (4.8-10.8)
[2017-07-30 07:46] LABS: COMPLETE YES; TOXIC GRANULATION 1+
[2017-07-30] MEDS: AMLODIPINE BESYLATE 5 MG TAB PO SCH (07:48)
[2017-07-30] MEDS: LOSARTAN POTASSIUM 25 MG TAB PO SCH (07:48)
[2017-07-30] MEDS: PANTOprazole SOD 40 MG TAB PO SCH (07:48)
[2017-07-30 08:00] LABS: BUN/CREATININE RATIO 22.1 (10-20); CALCIUM 8.2 mg/dl (8.5-10.1); CREATININE 1.2 mg/dl (0.60-1.40); POTASSIUM 3.9 mmol/L (3.5-5.1)
--- NOTE | 2017-07-30 10:06 | Clinical Documentation Query ---
CLINICAL DOCUMENTATION QUERY 66 year old male who presents to the Emergency Room by EMS with complaints of a syncopal episode and rectal bleeding. EGD confirmed recent healing gastric erosion. Patient presented anemic requiring blood transfusion. In your clinical opinion is this patient being managed for: ( X ) Acute blood loss anemia treated with PRBC's and IVF's. ( ) Not Agree ( ) Other explanation of clinical findings (Please Explain) ( ) Unable to determine (Please Define) ( ) Need to Discuss The medical record reflects the following clinical findings, treatment, and risk factors. Clinical Indicators: As above. Hgb 8.4, Hct 24.2 Treatment: 1 unit of PRBC's, IVF's, GI consult, and EGD Risk Factors: Age, gastric ulcer, Please clarify and document your clinical opinion in the progress notes and discharge summary. Terms such as "probable", "suspected", "likely", "questionable", "possible", or "still to be ruled out" are acceptable. IF IN AGREEMENT, YOU MUST DOCUMENT ABOVE DIAGNOSTIC STATEMENT IN DAILY PROGRESS NOTES AND DISCHARGE SUMMARY. This document is not part of the patient's record. Thank You, Cristian Diaz, RN [phone]
--- NOTE | 2017-07-30 11:34 | Progress Note ---
Internal Med Progress Note Date of Service: Jul 30, 2017. Provider Documentation: SUBJECTIVE: Seen and examined at bedside Had 1 BM today which is black tarry mixed with bright red blood Denies diarrhea Feels tired Denies CP/SOB/Abdominal pain/weakness/ change in vision/dizziness Eager to get discharged Hb dropped from 9.6 to 8.6 today OBJECTIVE: Vital Signs-as noted below Physical Exam: General Appearance:Moderately built and nourished, no apparent distress Head: normocephalic, Atraumatic Eyes: normal inspection, EOMI, PERRL Neck: supple, Trachea midline Respiratory/Chest: Normal breath sounds, CTA Cardiovascular: S1, S2, No murmur Abdomen/GI:Soft, Non tender, Bowel sounds present Extremities/Musculoskelatal:normal inspection, no edema Neurologic/Psych:grossly no focal neurological deficits Skin: normal color, warm Lab data as noted below. ASSESSMENT & PLAN: Upper GI bleeding: Acute Blood Loss Anemia: S/P EGD: Gastric erosion in antrum suggestive of healing gastric ulcer S/P 1 unit PRBC Had 1 episode of bleeding per rectum this morning: likely old blood Monitor Hb: 8.6 today PPI GGT discontinued Continue PPI Q daily Bleeding scan as per GI Needs repeat EGD and colonoscopy in 4 weeks as outpatient Appreciate GI Input Syncope: Likely vasovagal/Hypovolemia CT head: no acute pathology Denies any neurological symptoms Negative orthostatics Monitor in Tele: No rhythm problems ECHO:as below Hypertension: stable. Prediabetes: ISS, accu checks DVT Px: SCDs RE UGIB Code Status: Full code Disposition: Plan to discharge home when medically stable PROCEDURES: ECHO: * The left ventricle is normal in size. * There is moderate concentric left ventricular hypertrophy. * The left ventricular wall motion is normal. * Left ventricular systolic function is normal. * Ejection Fraction = 60-65%. * Grade I diastolic dysfunction, (abnormal relaxation pattern). * There is no vavlular disease Vital Signs: Date Time Temp Pulse Resp B/P (MAP) Pulse Ox O2 Delivery O2 Flow Rate FiO2 07/30/17 15:52 37.0 85 22 136/84 (101) 97 Room Air 07/30/17 13:17 94 Room Air 07/30/17 13:10 37.1 75 20 126/73 (90) 94 Room Air 07/30/17 12:00 Room Air 07/30/17 11:09 36.8 83 18 125/70 (88) 95 Room Air 07/30/17 07:45 Room Air 07/30/17 07:23 37.0 74 18 124/74 (91) 98 Room Air 07/30/17 04:00 37.4 66 16 133/79 (97) 94 Room Air 07/30/17 04:00 Room Air 07/30/17 00:59 37.3 77 16 127/81 (96) 91 07/30/17 00:00 Room Air 07/29/17 20:00 Room Air 07/29/17 19:36 36.9 76 16 151/77 (101) 93 Room Air Lab Results: Results Past 24 Hours Test 07/29/17 19:29 07/29/17 20:20 07/30/17 07:05 07/30/17 07:32 Range/Units Hemoglobin 9.6 8.6 14.0-18.0 g/dL Hematocrit 27.2 24.6 42-52 % Bedside Glucose 143 139 70-99 mg/dl White Blood Count 9.11 4.8-10.8 K/uL Red Blood Count 2.94 4.7-6.1 M/uL Mean Corpuscular Volume 83.7 80-100 fL Mean Corpuscular Hemoglobin 29.3 25-34 pg Mean Corpuscular Hemoglobin Concent 35.0 32-36 g/dl Platelet Count 204 130-400 K/uL Mean Platelet Volume 8.1 7.4-10.4 fL Neutrophils (%) (Auto) 74.1 % Lymphocytes (%) (Auto) 15.8 % Monocytes (%) (Auto) 8.3 % Eosinophils (%) (Auto) 1.2 % Basophils (%) (Auto) 0.2 % Neutrophils # (Auto) 6.74 1.4-6.5 K/uL Lymphocytes # (Auto) 1.44 1.2-3.4 K/uL Monocytes # (Auto) 0.76 0.11-0.59 K/uL Eosinophils # (Auto) 0.11 0-0.5 K/uL Basophils # (Auto) 0.02 0-0.2 K/uL RDW Standard Deviation 40.0 36.4-46.3 fL RDW Coefficient of Variation 13.1 11.5-14.5 % Immature Granulocyte % (Auto) 0.4 % Immature Granulocyte # (Auto) 0.04 0.00-0.02 K/uL Toxic Granulation 1+ Red Blood Cell Morphology Unremarkable Sodium Level 140 136-145 mmol/L Potassium Level 3.9 3.5-5.1 mmol/L Chloride Level 106 98-107 mmol/L Carbon Dioxide Level 26 21-32 mmol/L Anion Gap 8.0 3-11 mmol/L Blood Urea Nitrogen 27 7-18 mg/dl Creatinine 1.20 0.60-1.40 mg/dl Est Creatinine Clear Calc Drug Dose 60.5 ml/min Estimated GFR () 71.6 Estimated GFR (Non- 61.8 BUN/Creatinine Ratio 22.1 10-20 Random Glucose 134 70-99 mg/dl Calcium Level 8.2 8.5-10.1 mg/dl Test 07/30/17 11:24 07/30/17 15:56 Range/Units Bedside Glucose 178 147 70-99 mg/dl Microbiology Results 07/30/17 Shiga Toxin Test, Received Pending 07/30/17 Stool Culture, Received Pending 07/30/17 C.difficile Toxin B Gene (PCR) - Final, Complete No C. difficile toxin B gene detected
--- NOTE | 2017-07-30 11:50 | Gastroenterology Progress Note ---
Progress Note Date of Service: Jul 30, 2017 Subjective Pt evaluation today including: conversation w/ patient, physical exam, chart review, lab review, review of inpatient medication list Pt had dark maroon colored stools this AM. Hgb down 1 pt to 8.6. He denies CP, SOB, abd pain, n/v. Tolerated regular breakfast today Review of Systems Constitutional: No fever, No chills Respiratory: No cough, No shortness of breath Cardiac: No chest pain Abdomen: + GI bleeding, No pain, No nausea, No vomiting Medications Current Inpatient Medications Medications (Trade) Dose Ordered Sig/Sotero Route Start Time Stop Time Status Last Admin Dose Admin Acetaminophen (Tylenol Tab) 650 mg Q4H PRN PO 07/29/17 06:45 08/28/17 06:44 Nitroglycerin (Nitrostat Tab) 0.4 mg UD PRN SL 07/29/17 06:45 08/28/17 06:44 Insulin Aspart (novoLOG ASPART) SLIDING SCALE If C... ACHS SC 07/29/17 11:00 08/28/17 10:59 Glucose (Glucose 40% Gel) 15-30 GRAMS 15 GRAMS... UD PRN PO 07/29/17 06:45 08/28/17 06:44 Glucose (Glucose Chew Tab) 4-8 Tablets 4 Tabl... UD PRN PO 07/29/17 06:45 08/28/17 06:44 Dextrose (Dextrose 50% 50ML Syringe) 25-50ML OF 50% DW IV FOR... UD PRN IV 07/29/17 06:45 08/28/17 06:44 Glucagon (Glucagon Inj) 1 mg UD PRN SQ 07/29/17 06:45 08/28/17 06:44 Amlodipine Besylate (Norvasc Tab) 2.5 mg DAILY PO 07/29/17 09:00 08/28/17 08:59 07/30/17 07:48 2.5 MG Losartan Potassium (coZAAR TAB) 25 mg DAILY PO 07/29/17 21:00 08/28/17 20:59 07/30/17 07:48 25 MG Ondansetron HCl (Zofran Inj) 4 mg Q6H PRN IV 07/29/17 06:45 08/28/17 06:44 Lorazepam (Ativan Inj) 0.5 mg Q4H PRN IV 07/29/17 06:45 08/28/17 06:44 Tramadol HCl (Ultram Tab) `0.5-1 tabs for pain ... Q6H PRN PO 07/29/17 06:45 08/28/17 06:44 Pantoprazole Sodium (Protonix Tab) 40 mg QAM PO 07/30/17 09:00 08/29/17 08:59 07/30/17 07:48 40 MG Objective Vital Signs Date Time Temp Pulse Resp B/P (MAP) Pulse Ox O2 Delivery O2 Flow Rate FiO2 07/30/17 11:09 36.8 83 18 125/70 (88) 95 Room Air 07/30/17 07:45 Room Air 07/30/17 07:23 37.0 74 18 124/74 (91) 98 Room Air 07/30/17 04:00 37.4 66 16 133/79 (97) 94 Room Air 07/30/17 04:00 Room Air 07/30/17 00:59 37.3 77 16 127/81 (96) 91 07/30/17 00:00 Room Air 07/29/17 20:00 Room Air 07/29/17 19:36 36.9 76 16 151/77 (101) 93 Room Air 07/29/17 16:15 Room Air 07/29/17 15:58 66 16 119/70 (86) 95 Room Air 07/29/17 15:43 68 16 112/63 (79) 93 Room Air 07/29/17 15:28 72 16 106/56 (73) 95 Room Air 07/29/17 14:43 36.5 95 18 148/78 (101) 92 Room Air 95 07/29/17 12:30 Room Air Physical Exam General Appearance: WD/WN, no apparent distress Eyes: normal inspection, PERRL, EOMI Neck: supple, no JVD, trachea midline Respiratory/Chest: normal breath sounds, no respiratory distress, no accessory muscle use Cardiovascular: regular rate, rhythm, no gallop, no murmur Abdomen: normal bowel sounds, non tender, soft Extremities: normal inspection, no pedal edema, no calf tenderness Neurologic/Psych: alert, normal mood/affect, oriented x 3 Skin: normal color, no jaundice, no rash Laboratory Results Last 24 Hours Test 07/29/17 11:50 07/29/17 11:56 07/29/17 12:16 07/29/17 16:28 Urine Color YELLOW Urine Appearance CLEAR Urine pH 5.0 Urine Specific [place] 1.020 Urine Protein NEG Urine Glucose (UA) 1+ Urine Ketones NEG Urine Occult Blood NEG Urine Nitrite NEG Urine Bilirubin NEG Urine Urobilinogen NEG Urine Leukocyte Esterase NEG Bedside Glucose 144 mg/dl 118 mg/dl Hemoglobin 9.9 g/dL Hematocrit 28.4 % Absolute Reticulocyte Count 0.08 10^6/uL Percent Reticulocyte Count 2.2 % Iron Level 49 mcg/dl Total Iron Binding Capacity 256 mcg/dl Transferrin 182 mg/dl Transferrin % Saturation 19 % Ferritin 150.8 ng/ml Vitamin B12 Level 206 pg/mL Folate 22.95 ng/mL Test 07/29/17 19:29 07/29/17 20:20 07/30/17 07:05 07/30/17 07:32 Hemoglobin 9.6 g/dL 8.6 g/dL Hematocrit 27.2 % 24.6 % Bedside Glucose 143 mg/dl 139 mg/dl White Blood Count 9.11 K/uL Red Blood Count 2.94 M/uL Mean Corpuscular Volume 83.7 fL Mean Corpuscular Hemoglobin 29.3 pg Mean Corpuscular Hemoglobin Concent 35.0 g/dl Platelet Count 204 K/uL Mean Platelet Volume 8.1 fL Neutrophils (%) (Auto) 74.1 % Lymphocytes (%) (Auto) 15.8 % Monocytes (%) (Auto) 8.3 % Eosinophils (%) (Auto) 1.2 % Basophils (%) (Auto) 0.2 % Neutrophils # (Auto) 6.74 K/uL Lymphocytes # (Auto) 1.44 K/uL Monocytes # (Auto) 0.76 K/uL Eosinophils # (Auto) 0.11 K/uL Basophils # (Auto) 0.02 K/uL RDW Standard Deviation 40.0 fL RDW Coefficient of Variation 13.1 % Immature Granulocyte % (Auto) 0.4 % Immature Granulocyte # (Auto) 0.04 K/uL Toxic Granulation 1+ Red Blood Cell Morphology Unremarkable Sodium Level 140 mmol/L Potassium Level 3.9 mmol/L Chloride Level 106 mmol/L Carbon Dioxide Level 26 mmol/L Anion Gap 8.0 mmol/L Blood Urea Nitrogen 27 mg/dl Creatinine 1.20 mg/dl Est Creatinine Clear Calc Drug Dose 60.5 ml/min Estimated GFR () 71.6 Estimated GFR (Non- 61.8 BUN/Creatinine Ratio 22.1 Random Glucose 134 mg/dl Calcium Level 8.2 mg/dl Test 07/30/17 11:24 Bedside Glucose 178 mg/dl Assessment and Plan Patient is a 66 year old male who presented w syncopal episode, noted to be anemic w hx of diarrhea, melena & BRBPR. He had been treated w PPI bolus & gtt for suspected UGI bleed, made NPO and started on 1U PRBC transfusion. Hx of diverticular & hemorrhoidal diseases. DDX: diverticular/hermorrhoidal bleeding, infectious or ischemic colitis, PUD w bleeding ulcer, less likely AVMs or malignancy. EGD on 07/29 w possible healing ulcer. His Hgb down 1 pt since yesterday to 8.6, had a bout of dark maroon colored liquid stool this AM. Plans - Keep NPO - Obtain GI bleeding scan - Continue PPI - Will re-eval in afternoon after repeat labs, GI bleeding scan to see if we need to perform colonoscopy tomorrow or not. - Obtain stool cx and Cdiff given diarrhea and family being ill w "flu". Stool cx pending, Cdiff negative. - Monitor H/H and transfuse prn Attg addendum: I interviewed and examined pt, reviewed chart and labs. Pt with complaints concerning for ongoing bleed. Hgb fell, but VS stable and BUN has not risen. SMall bowel bleed? Plan bleeding scan, csocpy. Clears.
--- NOTE | 2017-07-30 15:16 | DIAGNOSTIC IMAGING REPORT ---
GI BLEEDING SCAN CLINICAL HISTORY: melena bleeding TECHNIQUE: Dynamic imaging following administration of 25 mCi technetium 99m ultra tag. COMPARISON STUDY: None FINDINGS: Normal activity characteristics throughout the abdomen and pelvis. No evidence for active bleeding focus. IMPRESSION: Normal study The above report was generated using voice recognition software. It may contain grammatical, syntax or spelling errors. Electronically signed by: Ross Garcia M.D. 07/30/2017 3:15 PM Dictated Date/Time: 07/30/2017 3:07 PM
[2017-07-30] MEDS ORDERED: BISACODYL 5 MG TABEC PO ONE (17:00)
[2017-07-30] MEDS ORDERED: POLYETHYLENE GLYCER PWD 238 GM BTL PO ONE ×3 (17:00→21:00)
[2017-07-30 17:03] LABS: HEMATOCRIT 24.1 % (42-52)
[2017-07-31] VITALS (18 sets, daily range): BP systolic 116–157; BP diastolic 63–84; PULSE 57–96; TEMP 36.5–37; O2SAT 94–98
[2017-07-31] MEDS: INSULIN ASPART 100 UNITS/ML 3 ML PEN SC SCH ×4 (06:30→21:00)
[2017-07-31 07:47] LABS: BASO % 0.1 %; BASO ABS # 0.01 K/uL (0-0.2); HEMATOCRIT 21.5 % (42-52); IG% 0.6 %; LYMPH ABS # 1.32 K/uL (1.2-3.4); MEAN CELL VOLUME 84.6 fL (80-100); MEAN CORPUSCULAR HEMOGLOBIN 29.9 pg (25-34); MEAN CORPUSCULAR HGB CONC 35.3 g/dl (32-36); MEAN PLATELET VOLUME 7.8 fL (7.4-10.4); MONO % 9.5 %; NEUT % 72.8 %; PLATELET COUNT 238 K/uL (130-400); RED BLOOD COUNT 2.54 M/uL (4.7-6.1); WHITE BLOOD COUNT 8.25 K/uL (4.8-10.8)
[2017-07-31 08:19] LABS: COMPLETE YES
[2017-07-31] MEDS: AMLODIPINE BESYLATE 5 MG TAB PO SCH (08:36)
[2017-07-31] MEDS: LOSARTAN POTASSIUM 25 MG TAB PO SCH (08:36)
[2017-07-31] MEDS: PANTOprazole SOD 40 MG TAB PO SCH (08:36)
--- NOTE | 2017-07-31 13:07 | Endo History and Physical ---
History & Physical Date of Service: Jul 31, 2017. Chief Complaint: bleeding Referring Physician: History of Present Illness Bleeding Past Surgical History Hx Cardiac Surgery: No Hx Abdominal Surgery: No Hx Post-Op Nausea and Vomiting: No Hx Cancer Surgery: No Hx Thoracic Surgery: No Hx Orthopedic: No Hx Urinary Tract Surgery: No Social History Smoking Status: Never Smoker Hx Substance Use: No Hx Alcohol Use: Yes ("not much") Allergies Coded Allergies: No Known Allergies (Unverified , 07/29/17) Current Medications Reported Home Medications Medications Dose Route/Sig Max Daily Dose Days Date Category Vitamin D 400 Iu (Cholecalciferol) 400 Unit Cap 400 Inter.unit PO DAILY 07/29/17 Reported Hctz (Hydrochlorothiazide) 25 Mg Tab 25 Mg PO DAILY 07/29/17 Reported Glucophage (Metformin Hcl) 500 Mg Tab 500 Mg PO BID 07/29/17 Reported Cozaar (Losartan Potassium) 50 Mg Tab 50 Mg PO DAILY 07/29/17 Reported Norvasc (Amlodipine Besylate) 5 Mg Tab 5 Mg PO DAILY 07/29/17 Reported Vital Signs Weight (Kilograms): 80.400 Height (Feet): 5 Height (Inches): 7.00 Date Time Temp Pulse Resp B/P (MAP) Pulse Ox O2 Delivery O2 Flow Rate FiO2 07/31/17 13:01 37.0 76 20 148/80 98 07/31/17 12:53 37 76 20 148/80 (102) 98 Room Air 07/31/17 12:30 36.9 71 16 129/75 98 07/31/17 12:14 36.7 71 16 133/80 07/31/17 12:05 36.7 71 18 116/63 98 07/31/17 12:00 Room Air 07/31/17 11:08 36.7 72 18 147/82 95 07/31/17 10:45 36.5 57 16 144/75 07/31/17 10:15 36.9 57 16 123/76 07/31/17 09:59 36.8 57 20 121/71 07/31/17 09:45 36.6 57 18 123/76 07/31/17 09:33 36.9 57 18 123/76 96 07/31/17 07:45 Room Air 07/31/17 07:12 36.7 64 18 132/77 (95) 96 07/31/17 04:00 94 Room Air 07/31/17 03:54 36.8 71 16 148/80 (102) 95 Room Air 07/31/17 00:00 94 Room Air 07/30/17 23:37 37.0 74 16 137/78 (97) 95 Room Air 07/30/17 22:38 37.0 107 20 129/75 95 Room Air 85 07/30/17 20:37 Room Air 07/30/17 19:30 37.0 107 20 129/75 (93) 95 Room Air 07/30/17 16:00 Room Air 07/30/17 15:52 37.0 85 22 136/84 (101) 97 Room Air 07/30/17 13:17 94 Room Air 07/30/17 13:10 37.1 75 20 126/73 (90) 94 Room Air Physical Exam General Appearance: no apparent distress Respiratory/Chest: Respiratory effort: no dyspnea Cardiovascular: Heart Auscultation: RRR Abdomen: Inspection & Palpation: soft Assessment and Plan Bleeding - cscopy
[2017-07-31] MEDS ORDERED: PROPOFOL IV EMULSION 10 MG/ML 20 ML VIAL IV ONE (13:38)
--- NOTE | 2017-07-31 13:38 | GI REPORT ---
Procedure Date: 07/31/2017 1:22 PM Procedure: Colonoscopy Indications: Rectal bleeding Medicines: See the Anesthesia note for documentation of the administered medications Complications: No immediate complications. Estimated Blood Loss: Estimated blood loss: none. Procedure: Pre-Anesthesia Assessment: - ASA Grade Assessment: III - A patient with severe systemic disease. After I obtained informed consent, the scope was passed under direct vision. Throughout the procedure, the patient's blood pressure, pulse, and oxygen saturations were monitored continuously. The scope was introduced through the anus with the intention of advancing to the cecum. The scope was advanced to the ascending colon before the procedure was aborted due to prep quality. Medications were given. The patient tolerated the procedure well. The quality of the bowel preparation was inadequate. Findings: There were large, prolapsed hemorrhoids. There was active oozing from one of the hemorrhoids. There was dark brown stool coating the entire colon, preventing visualization and precluding advancement of the scope beyond the ascending colon. There did not appear to be fresh red blood in the colon. Otherwise, the colonic mucosa could not be evaluated. There was diverticulosis throughout the examined portion of the colon. Impression: - Preparation of the colon was inadequate. - Diverticulosis. - Large prolapsed hemorrhoids, with rectal bleeding. This may be a possible source of his ongoing bleeding. Recommendation: - Discharge patient to home. Consult surgery for hemorrhoidal bleeding. Eric Mosqueda M.D. Eric Mosqueda MD 07/31/2017 1:37:54 PM This report has been signed electronically. Note Initiated On: 07/31/2017 1:22 PM I attest to the content of the Intraoperative Record and orders documented therein, exceptions below
--- NOTE | 2017-07-31 14:21 | Anesthesiology Progress Note ---
Anesthesia Post Op Note Date & Time Jul 31, 2017 at 14:20 Vital Signs Pain Intensity: 2 Vital Signs Past 12 Hours Date Time Temp Pulse Resp B/P (MAP) Pulse Ox O2 Delivery O2 Flow Rate FiO2 07/31/17 14:00 69 20 123/73 (90) 96 Room Air 07/31/17 13:45 71 20 127/71 (89) 98 Room Air 07/31/17 13:30 76 20 123/69 (87) 96 Room Air 07/31/17 13:01 37.0 76 20 148/80 98 07/31/17 12:53 37 76 20 148/80 (102) 98 Room Air 07/31/17 12:30 36.9 71 16 129/75 98 07/31/17 12:14 36.7 71 16 133/80 07/31/17 12:05 36.7 71 18 116/63 98 07/31/17 12:00 Room Air 07/31/17 11:08 36.7 72 18 147/82 95 07/31/17 10:45 36.5 57 16 144/75 07/31/17 10:15 36.9 57 16 123/76 07/31/17 09:59 36.8 57 20 121/71 07/31/17 09:45 36.6 57 18 123/76 07/31/17 09:33 36.9 57 18 123/76 96 07/31/17 07:45 Room Air 07/31/17 07:12 36.7 64 18 132/77 (95) 96 07/31/17 04:00 94 Room Air 07/31/17 03:54 36.8 71 16 148/80 (102) 95 Room Air Notes Mental Status: alert / awake / arousable, participated in evaluation Pt Amnestic to Procedure: Yes Nausea / Vomiting: adequately controlled Pain: adequately controlled Airway Patency, RR, SpO2: stable & adequate BP & HR: stable & adequate Hydration State: stable & adequate Anesthetic Complications: no major complications apparent
--- NOTE | 2017-07-31 15:11 | Progress Note ---
Internal Med Progress Note Date of Service: Jul 31, 2017. Provider Documentation: SUBJECTIVE: Seen and examined at bedside Reports having 2 Bloody BMs this morning Had colonoscopy today Denies CP/SOB/Abdominal pain/dizziness Hb dropped from 9.6 to 8.6 today. Transfused PRBC OBJECTIVE: Vital Signs-as noted below Physical Exam: General Appearance:Moderately built and nourished, no apparent distress Head: normocephalic, Atraumatic Eyes: normal inspection, EOMI, PERRL Neck: supple, Trachea midline Respiratory/Chest: Normal breath sounds, CTA Cardiovascular: S1, S2, No murmur Abdomen/GI:Soft, Non tender, Bowel sounds present Extremities/Musculoskelatal:normal inspection, no edema Neurologic/Psych:grossly no focal neurological deficits Skin: normal color, warm Lab data as noted below. ASSESSMENT & PLAN: Upper GI bleeding: Acute Blood Loss Anemia: S/P EGD: Gastric erosion in antrum suggestive of healing gastric ulcer Bleeding Scan:Normal study Colonoscopy:Poor prep, diverticulosis, Large prolapsed hemorrhoids S/P 3 unit PRBC Monitor Hb: 7.6 today, Transfused PRBC today Continue PPI May need repeat EGD and colonoscopy in 4 weeks as outpatient Appreciate GI Input Hydrocortisone cream for hemorrhoids Surgery consulted Syncope: Resolved Likely vasovagal/Hypovolemia CT head: no acute pathology Denies any neurological symptoms Negative orthostatics Monitor in Tele: No rhythm problems ECHO:as below Hypertension: stable. Prediabetes: ISS, accu checks DVT Px: SCDs RE UGIB Code Status: Full code Disposition: Plan to discharge home when medically stable PROCEDURES: ECHO: * The left ventricle is normal in size. * There is moderate concentric left ventricular hypertrophy. * The left ventricular wall motion is normal. * Left ventricular systolic function is normal. * Ejection Fraction = 60-65%. * Grade I diastolic dysfunction, (abnormal relaxation pattern). * There is no vavlular disease Vital Signs: Date Time Temp Pulse Resp B/P (MAP) Pulse Ox O2 Delivery O2 Flow Rate FiO2 07/31/17 14:00 37.0 96 18 123/73 96 07/31/17 14:00 69 20 123/73 (90) 96 Room Air 07/31/17 13:45 71 20 127/71 (89) 98 Room Air 07/31/17 13:30 76 20 123/69 (87) 96 Room Air 07/31/17 13:01 37.0 76 20 148/80 98 07/31/17 12:53 37 76 20 148/80 (102) 98 Room Air 07/31/17 12:30 36.9 71 16 129/75 98 07/31/17 12:14 36.7 71 16 133/80 07/31/17 12:05 36.7 71 18 116/63 98 07/31/17 12:00 Room Air 07/31/17 11:08 36.7 72 18 147/82 95 07/31/17 10:45 36.5 57 16 144/75 07/31/17 10:15 36.9 57 16 123/76 07/31/17 09:59 36.8 57 20 121/71 07/31/17 09:45 36.6 57 18 123/76 07/31/17 09:33 36.9 57 18 123/76 96 07/31/17 07:45 Room Air 07/31/17 07:12 36.7 64 18 132/77 (95) 96 07/31/17 04:00 94 Room Air 07/31/17 03:54 36.8 71 16 148/80 (102) 95 Room Air 07/31/17 00:00 94 Room Air 07/30/17 23:37 37.0 74 16 137/78 (97) 95 Room Air 07/30/17 22:38 37.0 107 20 129/75 95 Room Air 85 07/30/17 20:37 Room Air 07/30/17 19:30 37.0 107 20 129/75 (93) 95 Room Air 07/30/17 16:00 Room Air 07/30/17 15:52 37.0 85 22 136/84 (101) 97 Room Air Lab Results: Results Past 24 Hours Test 07/30/17 15:56 07/30/17 16:53 07/30/17 20:32 07/31/17 00:40 Range/Units Bedside Glucose 147 204 157 70-99 mg/dl Hemoglobin 8.4 14.0-18.0 g/dL Hematocrit 24.1 42-52 % Test 07/31/17 07:12 07/31/17 07:26 07/31/17 11:02 Range/Units Bedside Glucose 147 146 70-99 mg/dl White Blood Count 8.25 4.8-10.8 K/uL Red Blood Count 2.54 4.7-6.1 M/uL Hemoglobin 7.6 14.0-18.0 g/dL Hematocrit 21.5 42-52 % Mean Corpuscular Volume 84.6 80-100 fL Mean Corpuscular Hemoglobin 29.9 25-34 pg Mean Corpuscular Hemoglobin Concent 35.3 32-36 g/dl Platelet Count 238 130-400 K/uL Mean Platelet Volume 7.8 7.4-10.4 fL Neutrophils (%) (Auto) 72.8 % Lymphocytes (%) (Auto) 16.0 % Monocytes (%) (Auto) 9.5 % Eosinophils (%) (Auto) 1.0 % Basophils (%) (Auto) 0.1 % Neutrophils # (Auto) 6.01 1.4-6.5 K/uL Lymphocytes # (Auto) 1.32 1.2-3.4 K/uL Monocytes # (Auto) 0.78 0.11-0.59 K/uL Eosinophils # (Auto) 0.08 0-0.5 K/uL Basophils # (Auto) 0.01 0-0.2 K/uL RDW Standard Deviation 40.6 36.4-46.3 fL RDW Coefficient of Variation 13.3 11.5-14.5 % Immature Granulocyte % (Auto) 0.6 % Immature Granulocyte # (Auto) 0.05 0.00-0.02 K/uL Red Blood Cell Morphology Unremarkable
--- NOTE | 2017-07-31 17:43 | Medical Consult ---
Consultation Date of Consultation: Jul 31, 2017. Attending Physician: Srikanth Montero MD Reason for Consultation: Hemorrhoidal bleed. History of Present Illness General Surgery was consulted for evaluation of Edilson Fabian, a 66-year-old male with a past medical history significant for hypertension, diverticulosis and polyps. Patient was admitted to hospital for syncope and dark tarry stools. Patient reports that he has a 20+ year history of hemorrhoids. He states that he has never had to seek out medical attention for treatment of hemorrhoids. Has been trying to increase fiber, water in his diet. He reports that he had two bloody bowel movements this AM. Patient did have colonoscopy performed this AM which showed that there were large, prolapsed hemorrhoids. There was active oozing from one of the hemorrhoids. In addition , there was evidence of diverticulosis. Patient denies rectal pain. Denies abdominal pain. Denies nausea or vomiting. Patient had to be transfused with PRBC due to drop in Hgb ( 9.6 to 8.6). Past Medical/Surgical History Medical Problems: (1) Syncope Status: Acute (2) Upper GI bleed Status: Acute Social History Smoking Status: Never Smoker Drug Use: none Marital Status: Housing Status: lives with significant other Allergies Coded Allergies: No Known Allergies (Unverified , 07/29/17) Current Inpatient Medications Current Inpatient Medications Medications (Trade) Dose Ordered Sig/Sotero Route Start Time Stop Time Status Last Admin Dose Admin Acetaminophen (Tylenol Tab) 650 mg Q4H PRN PO 07/29/17 06:45 08/28/17 06:44 Nitroglycerin (Nitrostat Tab) 0.4 mg UD PRN SL 07/29/17 06:45 08/28/17 06:44 Insulin Aspart (novoLOG ASPART) SLIDING SCALE If C... ACHS SC 07/29/17 11:00 08/28/17 10:59 Glucose (Glucose 40% Gel) 15-30 GRAMS 15 GRAMS... UD PRN PO 07/29/17 06:45 08/28/17 06:44 Glucose (Glucose Chew Tab) 4-8 Tablets 4 Tabl... UD PRN PO 07/29/17 06:45 08/28/17 06:44 Dextrose (Dextrose 50% 50ML Syringe) 25-50ML OF 50% DW IV FOR... UD PRN IV 07/29/17 06:45 08/28/17 06:44 Glucagon (Glucagon Inj) 1 mg UD PRN SQ 07/29/17 06:45 08/28/17 06:44 Amlodipine Besylate (Norvasc Tab) 2.5 mg DAILY PO 07/29/17 09:00 08/28/17 08:59 07/31/17 08:36 2.5 MG Losartan Potassium (coZAAR TAB) 25 mg DAILY PO 07/29/17 21:00 08/28/17 20:59 07/31/17 08:36 25 MG Ondansetron HCl (Zofran Inj) 4 mg Q6H PRN IV 07/29/17 06:45 08/28/17 06:44 Lorazepam (Ativan Inj) 0.5 mg Q4H PRN IV 07/29/17 06:45 08/28/17 06:44 Tramadol HCl (Ultram Tab) `0.5-1 tabs for pain ... Q6H PRN PO 07/29/17 06:45 08/28/17 06:44 Pantoprazole Sodium (Protonix Tab) 40 mg QAM PO 07/30/17 09:00 08/29/17 08:59 07/31/17 08:36 40 MG Hydrocortisone (Proctozone Hc 2.5% Crm) 1 appln HS EXT 07/31/17 21:00 08/30/17 20:59 Physical Exam Date Time Temp Pulse Resp B/P (MAP) Pulse Ox O2 Delivery O2 Flow Rate FiO2 07/31/17 16:00 Room Air 07/31/17 14:59 37.0 73 18 140/79 (99) 96 07/31/17 14:00 37.0 96 18 123/73 96 07/31/17 14:00 69 20 123/73 (90) 96 Room Air 07/31/17 13:45 71 20 127/71 (89) 98 Room Air 07/31/17 13:30 76 20 123/69 (87) 96 Room Air 07/31/17 13:01 37.0 76 20 148/80 98 07/31/17 12:53 37 76 20 148/80 (102) 98 Room Air 07/31/17 12:30 36.9 71 16 129/75 98 07/31/17 12:14 36.7 71 16 133/80 07/31/17 12:05 36.7 71 18 116/63 98 07/31/17 12:00 Room Air 07/31/17 11:08 36.7 72 18 147/82 95 07/31/17 10:45 36.5 57 16 144/75 07/31/17 10:15 36.9 57 16 123/76 07/31/17 09:59 36.8 57 20 121/71 07/31/17 09:45 36.6 57 18 123/76 07/31/17 09:33 36.9 57 18 123/76 96 07/31/17 07:45 Room Air 07/31/17 07:12 36.7 64 18 132/77 (95) 96 07/31/17 04:00 94 Room Air 07/31/17 03:54 36.8 71 16 148/80 (102) 95 Room Air 07/31/17 00:00 94 Room Air 07/30/17 23:37 37.0 74 16 137/78 (97) 95 Room Air 07/30/17 22:38 37.0 107 20 129/75 95 Room Air 85 07/30/17 20:37 Room Air 07/30/17 19:30 37.0 107 20 129/75 (93) 95 Room Air Laboratory Results Last 24 Hours Test 07/30/17 20:32 07/31/17 00:40 07/31/17 07:12 07/31/17 07:26 Bedside Glucose 204 mg/dl 157 mg/dl 147 mg/dl White Blood Count 8.25 K/uL Red Blood Count 2.54 M/uL Hemoglobin 7.6 g/dL Hematocrit 21.5 % Mean Corpuscular Volume 84.6 fL Mean Corpuscular Hemoglobin 29.9 pg Mean Corpuscular Hemoglobin Concent 35.3 g/dl Platelet Count 238 K/uL Mean Platelet Volume 7.8 fL Neutrophils (%) (Auto) 72.8 % Lymphocytes (%) (Auto) 16.0 % Monocytes (%) (Auto) 9.5 % Eosinophils (%) (Auto) 1.0 % Basophils (%) (Auto) 0.1 % Neutrophils # (Auto) 6.01 K/uL Lymphocytes # (Auto) 1.32 K/uL Monocytes # (Auto) 0.78 K/uL Eosinophils # (Auto) 0.08 K/uL Basophils # (Auto) 0.01 K/uL RDW Standard Deviation 40.6 fL RDW Coefficient of Variation 13.3 % Immature Granulocyte % (Auto) 0.6 % Immature Granulocyte # (Auto) 0.05 K/uL Red Blood Cell Morphology Unremarkable Test 07/31/17 11:02 07/31/17 16:19 Bedside Glucose 146 mg/dl 109 mg/dl Assessment & Plan Patient refused rectal exam. Patient states that he does not want to be seen or evaluated by General Surgery at this time. Dr. Harmon was made aware. If patient would like to be evaluated in the future by General Surgery please consult our service. Thank you.
[2017-07-31 20:04] LABS: HEMATOCRIT 27.8 % (42-52)
[2017-07-31] MEDS: HYDROCORTISONE HC 2.5% CRM 30GM TUBE EXT SCH (21:18)
[2017-08-01] VITALS (8 sets, daily range): BP systolic 149–177; BP diastolic 78–96; PULSE 64–95; TEMP 36.6–36.9; O2SAT 94–97
[2017-08-01] MEDS: INSULIN ASPART 100 UNITS/ML 3 ML PEN SC SCH ×4 (07:42→21:00)
[2017-08-01] MEDS: PANTOprazole SOD 40 MG TAB PO SCH (07:43)
[2017-08-01] MEDS: LOSARTAN POTASSIUM 25 MG TAB PO SCH (07:43)
[2017-08-01] MEDS: AMLODIPINE BESYLATE 5 MG TAB PO SCH (07:43)
[2017-08-01 07:45] LABS: BASO % 0.3 %; BASO ABS # 0.02 K/uL (0-0.2); COMPLETE YES; EOS % 1.8 %; HEMATOCRIT 28.5 % (42-52); IG% 1.5 %; LYMPH % 18.6 %; LYMPH ABS # 1.35 K/uL (1.2-3.4); MEAN CELL VOLUME 85.8 fL (80-100); MEAN CORPUSCULAR HEMOGLOBIN 29.5 pg (25-34); MEAN CORPUSCULAR HGB CONC 34.4 g/dl (32-36); MONO % 10.5 %; NEUT % 67.3 %; PLATELET COUNT 262 K/uL (130-400); RED BLOOD COUNT 3.32 M/uL (4.7-6.1); WHITE BLOOD COUNT 7.26 K/uL (4.8-10.8)
[2017-08-01 08:27] LABS: BUN/CREATININE RATIO 16.1 (10-20); CALCIUM 8.5 mg/dl (8.5-10.1); CREATININE 1.1 mg/dl (0.60-1.40); POTASSIUM 3.7 mmol/L (3.5-5.1)
--- NOTE | 2017-08-01 10:16 | Surgery Progress Note ---
Surgery Progress Note Date of Service Aug 01, 2017. Subjective + feeling well feeling well. no pain. no further bleeding/melena. Objective Vital Signs: Date Time Temp Pulse Resp B/P (MAP) Pulse Ox O2 Delivery O2 Flow Rate FiO2 08/01/17 08:00 Room Air 08/01/17 08:00 36.7 68 17 158/78 (104) 96 Room Air 08/01/17 04:00 94 Room Air 08/01/17 03:20 36.6 64 20 162/78 (106) 97 Room Air 08/01/17 00:00 94 Room Air 07/31/17 23:51 36.5 63 18 157/84 (108) 98 Room Air 07/31/17 20:11 36.7 79 18 156/75 (102) 97 Room Air 07/31/17 20:00 Room Air 07/31/17 16:00 Room Air 07/31/17 14:59 37.0 73 18 140/79 (99) 96 07/31/17 14:00 37.0 96 18 123/73 96 07/31/17 14:00 69 20 123/73 (90) 96 Room Air 07/31/17 13:45 71 20 127/71 (89) 98 Room Air 07/31/17 13:30 76 20 123/69 (87) 96 Room Air 07/31/17 13:01 37.0 76 20 148/80 98 07/31/17 12:53 37 76 20 148/80 (102) 98 Room Air 07/31/17 12:30 36.9 71 16 129/75 98 07/31/17 12:14 36.7 71 16 133/80 07/31/17 12:05 36.7 71 18 116/63 98 07/31/17 12:00 Room Air 07/31/17 11:08 36.7 72 18 147/82 95 07/31/17 10:45 36.5 57 16 144/75 07/31/17 10:15 36.9 57 16 123/76 General Appearance: no apparent distress Respiratory/Chest: no respiratory distress, no accessory muscle use Abdomen: non tender, soft Laboratory Results: Results Past 24 Hours Test 07/31/17 11:02 07/31/17 16:19 07/31/17 19:51 07/31/17 21:15 Range/Units Bedside Glucose 146 109 175 70-99 mg/dl Hemoglobin 9.7 14.0-18.0 g/dL Hematocrit 27.8 42-52 % Test 08/01/17 07:12 08/01/17 07:23 Range/Units Bedside Glucose 121 70-99 mg/dl White Blood Count 7.26 4.8-10.8 K/uL Red Blood Count 3.32 4.7-6.1 M/uL Hemoglobin 9.8 14.0-18.0 g/dL Hematocrit 28.5 42-52 % Mean Corpuscular Volume 85.8 80-100 fL Mean Corpuscular Hemoglobin 29.5 25-34 pg Mean Corpuscular Hemoglobin Concent 34.4 32-36 g/dl Platelet Count 262 130-400 K/uL Mean Platelet Volume 8.0 7.4-10.4 fL Neutrophils (%) (Auto) 67.3 % Lymphocytes (%) (Auto) 18.6 % Monocytes (%) (Auto) 10.5 % Eosinophils (%) (Auto) 1.8 % Basophils (%) (Auto) 0.3 % Neutrophils # (Auto) 4.89 1.4-6.5 K/uL Lymphocytes # (Auto) 1.35 1.2-3.4 K/uL Monocytes # (Auto) 0.76 0.11-0.59 K/uL Eosinophils # (Auto) 0.13 0-0.5 K/uL Basophils # (Auto) 0.02 0-0.2 K/uL RDW Standard Deviation 41.4 36.4-46.3 fL RDW Coefficient of Variation 13.5 11.5-14.5 % Immature Granulocyte % (Auto) 1.5 % Immature Granulocyte # (Auto) 0.11 0.00-0.02 K/uL Nucleated RBC Absolute Count (auto) 0.02 0-0 K/uL Nucleated Red Blood Cells % 0.2 % Sodium Level 143 136-145 mmol/L Potassium Level 3.7 3.5-5.1 mmol/L Chloride Level 110 98-107 mmol/L Carbon Dioxide Level 27 21-32 mmol/L Anion Gap 6.0 3-11 mmol/L Blood Urea Nitrogen 18 7-18 mg/dl Creatinine 1.10 0.60-1.40 mg/dl Est Creatinine Clear Calc Drug Dose 60.1 ml/min Estimated GFR () 79.5 Estimated GFR (Non- 68.6 BUN/Creatinine Ratio 16.1 10-20 Random Glucose 125 70-99 mg/dl Calcium Level 8.5 8.5-10.1 mg/dl Assessment & Plan 08/01/17 we rediscussed his hemorrhoid issue. he states he has been dealing with this for 20 years. deferred exam again today and is not interested in any surgical intervention. hg increased again slightly to 9.8 so bleeding appears to have resolved will sign off. please call if we can help.
--- NOTE | 2017-08-01 11:53 | Progress Note ---
Internal Med Progress Note Date of Service: Aug 01, 2017. Provider Documentation: SUBJECTIVE: Seen and examined at bedside Feels well this morning No bleeding issues today Hb:9.8 Denies CP/SOB/Abdominal pain/dizziness Eager to get discharged OBJECTIVE: Vital Signs-as noted below Physical Exam: General Appearance:Moderately built and nourished, no apparent distress Head: normocephalic, Atraumatic Eyes: normal inspection, EOMI, PERRL Neck: supple, Trachea midline Respiratory/Chest: Normal breath sounds, CTA Cardiovascular: S1, S2, No murmur Abdomen/GI:Soft, Non tender, Bowel sounds present Extremities/Musculoskelatal:normal inspection, no edema Neurologic/Psych:grossly no focal neurological deficits Skin: normal color, warm Lab data as noted below. ASSESSMENT & PLAN: Upper GI bleeding: Acute Blood Loss Anemia: S/P EGD: Gastric erosion in antrum suggestive of healing gastric ulcer Bleeding Scan:Normal study Colonoscopy:Poor prep, diverticulosis, Large prolapsed hemorrhoids S/P 3 unit PRBC Monitor Hb: 9.8 today Transfuse PRN Continue PPI May need repeat EGD and colonoscopy in 4 weeks as outpatient Appreciate GI Input Hydrocortisone cream for hemorrhoids Patient refused evaluation by Surgery and would like to consider follow up as outpatient Syncope: Resolved Likely vasovagal/Hypovolemia CT head: no acute pathology Denies any neurological symptoms Negative orthostatics Monitor in Tele: No rhythm problems ECHO:as below Hypertension: stable. Prediabetes: ISS, accu checks DVT Px: SCDs RE UGIB Code Status: Full code Disposition: Plan to discharge home when medically stable PROCEDURES: ECHO: * The left ventricle is normal in size. * There is moderate concentric left ventricular hypertrophy. * The left ventricular wall motion is normal. * Left ventricular systolic function is normal. * Ejection Fraction = 60-65%. * Grade I diastolic dysfunction, (abnormal relaxation pattern). * There is no vavlular disease Vital Signs: Date Time Temp Pulse Resp B/P (MAP) Pulse Ox O2 Delivery O2 Flow Rate FiO2 08/01/17 08:00 Room Air 08/01/17 08:00 36.7 68 17 158/78 (104) 96 Room Air 08/01/17 04:00 94 Room Air 08/01/17 03:20 36.6 64 20 162/78 (106) 97 Room Air 08/01/17 00:00 94 Room Air 07/31/17 23:51 36.5 63 18 157/84 (108) 98 Room Air 07/31/17 20:11 36.7 79 18 156/75 (102) 97 Room Air 07/31/17 20:00 Room Air 07/31/17 16:00 Room Air 07/31/17 14:59 37.0 73 18 140/79 (99) 96 07/31/17 14:00 37.0 96 18 123/73 96 07/31/17 14:00 69 20 123/73 (90) 96 Room Air 07/31/17 13:45 71 20 127/71 (89) 98 Room Air 07/31/17 13:30 76 20 123/69 (87) 96 Room Air 07/31/17 13:01 37.0 76 20 148/80 98 07/31/17 12:53 37 76 20 148/80 (102) 98 Room Air 07/31/17 12:30 36.9 71 16 129/75 98 07/31/17 12:14 36.7 71 16 133/80 07/31/17 12:05 36.7 71 18 116/63 98 07/31/17 12:00 Room Air Lab Results: Results Past 24 Hours Test 07/31/17 16:19 07/31/17 19:51 07/31/17 21:15 08/01/17 07:12 Range/Units Bedside Glucose 109 175 121 70-99 mg/dl Hemoglobin 9.7 14.0-18.0 g/dL Hematocrit 27.8 42-52 % Test 08/01/17 07:23 08/01/17 11:13 Range/Units White Blood Count 7.26 4.8-10.8 K/uL Red Blood Count 3.32 4.7-6.1 M/uL Hemoglobin 9.8 14.0-18.0 g/dL Hematocrit 28.5 42-52 % Mean Corpuscular Volume 85.8 80-100 fL Mean Corpuscular Hemoglobin 29.5 25-34 pg Mean Corpuscular Hemoglobin Concent 34.4 32-36 g/dl Platelet Count 262 130-400 K/uL Mean Platelet Volume 8.0 7.4-10.4 fL Neutrophils (%) (Auto) 67.3 % Lymphocytes (%) (Auto) 18.6 % Monocytes (%) (Auto) 10.5 % Eosinophils (%) (Auto) 1.8 % Basophils (%) (Auto) 0.3 % Neutrophils # (Auto) 4.89 1.4-6.5 K/uL Lymphocytes # (Auto) 1.35 1.2-3.4 K/uL Monocytes # (Auto) 0.76 0.11-0.59 K/uL Eosinophils # (Auto) 0.13 0-0.5 K/uL Basophils # (Auto) 0.02 0-0.2 K/uL RDW Standard Deviation 41.4 36.4-46.3 fL RDW Coefficient of Variation 13.5 11.5-14.5 % Immature Granulocyte % (Auto) 1.5 % Immature Granulocyte # (Auto) 0.11 0.00-0.02 K/uL Nucleated RBC Absolute Count (auto) 0.02 0-0 K/uL Nucleated Red Blood Cells % 0.2 % Sodium Level 143 136-145 mmol/L Potassium Level 3.7 3.5-5.1 mmol/L Chloride Level 110 98-107 mmol/L Carbon Dioxide Level 27 21-32 mmol/L Anion Gap 6.0 3-11 mmol/L Blood Urea Nitrogen 18 7-18 mg/dl Creatinine 1.10 0.60-1.40 mg/dl Est Creatinine Clear Calc Drug Dose 60.1 ml/min Estimated GFR () 79.5 Estimated GFR (Non- 68.6 BUN/Creatinine Ratio 16.1 10-20 Random Glucose 125 70-99 mg/dl Calcium Level 8.5 8.5-10.1 mg/dl Bedside Glucose 177 70-99 mg/dl
--- NOTE | 2017-08-01 13:40 | Progress Note ---
Progress Note Date of Service Aug 01, 2017. Progress Note EVents noted. No further bleeding. Surg consult noted and appreciated. Hgb stable. A/P: Hemorrhoidal bleed Proximal GIB - tics? AVMs? - Adv diet, plan for d/c tomorrow if no further bleeding. Will repeat cscopy as outpt.
[2017-08-01 17:25] LABS: HEMATOCRIT 27.9 % (42-52)
[2017-08-01] MEDS: HYDROCORTISONE HC 2.5% CRM 30GM TUBE EXT SCH (21:00)
[2017-08-02] VITALS: O2SAT 94
[2017-08-02 04:00] VITALS: BP 121/70; PULSE 63; TEMP 36.9; O2SAT 94; O2SAT 99
[2017-08-02 05:44] LABS: BASO % 0.4 %; BASO ABS # 0.03 K/uL (0-0.2); EOS % 1.5 %; HEMATOCRIT 23.8 % (42-52); IG% 1.2 %; LYMPH % 17.7 %; LYMPH ABS # 1.18 K/uL (1.2-3.4); MEAN CELL VOLUME 86.9 fL (80-100); MEAN CORPUSCULAR HEMOGLOBIN 30.3 pg (25-34); MEAN CORPUSCULAR HGB CONC 34.9 g/dl (32-36); MEAN PLATELET VOLUME 7.8 fL (7.4-10.4); MONO % 11.4 %; NEUT % 67.8 %; PLATELET COUNT 257 K/uL (130-400); RED BLOOD COUNT 2.74 M/uL (4.7-6.1); WHITE BLOOD COUNT 6.67 K/uL (4.8-10.8)
[2017-08-02 06:09] LABS: COMPLETE YES; POLYCHROMASIA 1+
[2017-08-02 07:29] VITALS: BP 153/88; PULSE 67; TEMP 36.8; O2SAT 99
[2017-08-02] MEDS: INSULIN ASPART 100 UNITS/ML 3 ML PEN SC SCH ×2 (07:57→11:00)
[2017-08-02] MEDS: LOSARTAN POTASSIUM 25 MG TAB PO SCH (08:00)
[2017-08-02] MEDS: PANTOprazole SOD 40 MG TAB PO SCH (08:00)
[2017-08-02] MEDS: AMLODIPINE BESYLATE 5 MG TAB PO SCH (08:00)
[2017-08-02 11:16] VITALS: BP 162/89; PULSE 69; TEMP 36.7; O2SAT 97
--- NOTE | 2017-08-02 12:48 | Progress Note ---
Progress Note Date of Service Aug 02, 2017. Progress Note No complaints. Abelino PO. Brown BM, per pt, this morning. Abd unchanged - has large, prolapsed hemorrhoids without bleeding, no stool in vault. Labs show drop in hgb. Unclear if drop in hgb this morning represents ongoing bleeding - will recheck. If stable, then ok for d/c home. Has apptment for outpt cscopy.
[2017-08-02 13:04] LABS: HEMATOCRIT 26.6 % (42-52)
--- NOTE | 2017-08-02 13:32 | Progress Note ---
Internal Med Progress Note Date of Service: Aug 02, 2017. Provider Documentation: SUBJECTIVE: Seen and examined at bedside Doing well No bleeding issues since yesterday Hb:9.5 today Denies CP/SOB/Abdominal pain/dizziness OBJECTIVE: Vital Signs-as noted below Physical Exam: General Appearance:Moderately built and nourished, no apparent distress Head: normocephalic, Atraumatic Eyes: normal inspection, EOMI, PERRL Neck: supple, Trachea midline Respiratory/Chest: Normal breath sounds, CTA Cardiovascular: S1, S2, No murmur Abdomen/GI:Soft, Non tender, Bowel sounds present Extremities/Musculoskelatal:normal inspection, no edema Neurologic/Psych:grossly no focal neurological deficits Skin: normal color, warm Lab data as noted below. ASSESSMENT & PLAN: GI bleeding: Acute Blood Loss Anemia: S/P EGD: Gastric erosion in antrum suggestive of healing gastric ulcer Bleeding Scan:Normal study Colonoscopy:Poor prep, diverticulosis, Large prolapsed hemorrhoids S/P 3 unit PRBC Monitor Hb: 9.5 today Transfuse PRN Continue PPI May need repeat EGD and colonoscopy in 4 weeks as outpatient Appreciate GI Input Hydrocortisone cream for hemorrhoids Patient refused evaluation by Surgery and would like to consider follow up as outpatient Syncope: Resolved Likely vasovagal/Hypovolemia CT head: no acute pathology Denies any neurological symptoms Negative orthostatics Monitor in Tele: No rhythm problems ECHO:as below Hypertension: stable. Prediabetes: ISS, accu checks DVT Px: SCDs RE UGIB Code Status: Full code Disposition: Plan to discharge home today Follow up with your PCP in 1 week (Office will call your with appointment) Follow up with your x ray technologist on 08/06/17 at 3:45pm Get repeat EGD/Colonoscopy as outpatient per recommendations of your x ray technologist Seek immediate medical attention if your symptoms reoccur or worsen PROCEDURES: ECHO: * The left ventricle is normal in size. * There is moderate concentric left ventricular hypertrophy. * The left ventricular wall motion is normal. * Left ventricular systolic function is normal. * Ejection Fraction = 60-65%. * Grade I diastolic dysfunction, (abnormal relaxation pattern). * There is no vavlular disease Vital Signs: Date Time Temp Pulse Resp B/P (MAP) Pulse Ox O2 Delivery O2 Flow Rate FiO2 08/02/17 12:15 Room Air 08/02/17 11:16 36.7 69 20 162/89 (113) 97 08/02/17 08:30 Room Air 08/02/17 07:29 36.8 67 20 153/88 (109) 99 08/02/17 04:00 36.9 63 20 121/70 (87) 99 Room Air 08/02/17 04:00 94 Room Air 08/02/17 00:00 94 Room Air 08/01/17 23:38 36.7 74 18 149/87 (107) 96 Room Air 08/01/17 20:00 94 Room Air 08/01/17 19:21 36.8 95 18 177/79 (111) 96 Room Air 08/01/17 16:00 Room Air 08/01/17 15:56 36.9 77 16 166/96 (119) 95 Room Air Lab Results: Results Past 24 Hours Test 08/01/17 16:30 08/01/17 17:10 08/01/17 20:23 08/02/17 05:08 Range/Units Bedside Glucose 143 150 70-99 mg/dl Hemoglobin 9.9 8.3 14.0-18.0 g/dL Hematocrit 27.9 23.8 42-52 % White Blood Count 6.67 4.8-10.8 K/uL Red Blood Count 2.74 4.7-6.1 M/uL Mean Corpuscular Volume 86.9 80-100 fL Mean Corpuscular Hemoglobin 30.3 25-34 pg Mean Corpuscular Hemoglobin Concent 34.9 32-36 g/dl Platelet Count 257 130-400 K/uL Mean Platelet Volume 7.8 7.4-10.4 fL Neutrophils (%) (Auto) 67.8 % Lymphocytes (%) (Auto) 17.7 % Monocytes (%) (Auto) 11.4 % Eosinophils (%) (Auto) 1.5 % Basophils (%) (Auto) 0.4 % Neutrophils # (Auto) 4.52 1.4-6.5 K/uL Lymphocytes # (Auto) 1.18 1.2-3.4 K/uL Monocytes # (Auto) 0.76 0.11-0.59 K/uL Eosinophils # (Auto) 0.10 0-0.5 K/uL Basophils # (Auto) 0.03 0-0.2 K/uL RDW Standard Deviation 42.2 36.4-46.3 fL RDW Coefficient of Variation 13.7 11.5-14.5 % Immature Granulocyte % (Auto) 1.2 % Immature Granulocyte # (Auto) 0.08 0.00-0.02 K/uL Polychromasia 1+ Test 08/02/17 07:26 08/02/17 11:26 08/02/17 12:50 Range/Units Bedside Glucose 133 160 70-99 mg/dl Hemoglobin 9.5 14.0-18.0 g/dL Hematocrit 26.6 42-52 %
[2017-08-02] MEDS ORDERED: ANSHCCR EXT (13:37)
[2017-08-02] MEDS ORDERED: PRT40 PO (13:37)
--- NOTE | 2017-08-02 13:38 | Discharge Summary ---
Discharge Summary Date of Service Aug 02, 2017. Discharge Summary Admission Date: Jul 29, 2017 at 06:35 Discharge Date: Aug 02, 2017 Discharge Disposition: Home Principal Diagnosis: GI bleeding Procedures: ECHO: * The left ventricle is normal in size. * There is moderate concentric left ventricular hypertrophy. * The left ventricular wall motion is normal. * Left ventricular systolic function is normal. * Ejection Fraction = 60-65%. * Grade I diastolic dysfunction, (abnormal relaxation pattern). * There is no vavlular disease EGD, Colonoscopy Consultations: GI, Surgery Pending Studies/Follow-Up: Follow up with your PCP in 1 week (Office will call your with appointment) Follow up with your house calls nurse on 08/06/17 at 3:45pm Get repeat EGD/Colonoscopy as outpatient per recommendations of your house calls nurse Seek immediate medical attention if your symptoms reoccur or worsen Medication Reconciliation New Medications: Hydrocortisone (Proctosol Hc) 90 Appln/30 Gm Cr 1 APPLN EXT HS for 14 Days, #1 EA Pantoprazole (Pantoprazole Sodium) 40 Mg Tab 40 MG PO QAM for 30 Days, #30 TAB 2 Refills Continued Medications: Amlodipine (Norvasc) 5 Mg Tab 5 MG PO DAILY, TAB Cholecalciferol (Vitamin D 400 Iu) 400 Unit Cap 400 INTER.UNIT PO DAILY, CAP Hydrochlorothiazide (Hctz) 25 Mg Tab 25 MG PO DAILY, TAB Losartan Potassium (Cozaar) 50 Mg Tab 50 MG PO DAILY, TAB Metformin Hcl (Glucophage) 500 Mg Tab 500 MG PO BID, TAB Admission Information HPI (per Admitting provider): CHIEF COMPLAINT: Syncope, dark tarry stools. HISTORY OF PRESENT ILLNESS: Medical history is significant for hypertension, prediabetes. hx colonic diverticulosis and polyps. Few days history of illness, dark tarry stools, no chest pain, no shortness of breath, lightheadedness. No abdominal pain. Denies inordinate weight loss. Patient went to the bathroom this morning. Px felt lightheaded ,passed out for about a minute when he tried to get up from the commode. Fell backwards. No incontinence, no tongue biting. Patient brought to the Emergency Room. Protonix bolus given for UGIB. Physical Exam (per Admitting): PHYSICAL EXAMINATION: VITAL SIGNS: Blood pressure was noted to be 135/72, pulse rate 70, RR 16, temperature 36.7, sats 94 on room air. Orthostatic vitals negative. GENERAL: Noted to be pleasant, no respiratory distress. SKIN: Pallor. HEENT: Pale palpebral conjunctivae. Dry mucosa. Alopecia. NECK: No JVD. Supple. CHEST: Clear to auscultation. HEART: Regular rate and rhythm. ABDOMEN: Soft. EXTREMITIES: No edema, no tenderness. NEUROLOGIC: No gross focality. Hospital Course GI bleeding: Acute Blood Loss Anemia: S/P EGD: Gastric erosion in antrum suggestive of healing gastric ulcer Bleeding Scan:Normal study Colonoscopy:Poor prep, diverticulosis, Large prolapsed hemorrhoids S/P 3 unit PRBC Monitor Hb: 9.5 today Transfuse PRN Continue PPI May need repeat EGD and colonoscopy in 4 weeks as outpatient Appreciate GI Input Hydrocortisone cream for hemorrhoids Patient refused evaluation by Surgery and would like to consider follow up as outpatient Syncope: Resolved Likely vasovagal/Hypovolemia CT head: no acute pathology Denies any neurological symptoms Negative orthostatics Monitor in Tele: No rhythm problems ECHO:as below Hypertension: stable. Prediabetes: ISS, accu checks DVT Px: SCDs RE UGIB Code Status: Full code Disposition: Plan to discharge home today Follow up with your PCP in 1 week (Office will call your with appointment) Follow up with your house calls nurse on 08/06/17 at 3:45pm Get repeat EGD/Colonoscopy as outpatient per recommendations of your house calls nurse Seek immediate medical attention if your symptoms reoccur or worsen PROCEDURES: ECHO: * The left ventricle is normal in size. * There is moderate concentric left ventricular hypertrophy. * The left ventricular wall motion is normal. * Left ventricular systolic function is normal. * Ejection Fraction = 60-65%. * Grade I diastolic dysfunction, (abnormal relaxation pattern). * There is no vavlular disease Total time spent on discharge = 32 minutes This includes examination of the patient, discharge planning, medication reconciliation, and communication with other providers. Discharge Instructions Discharge Instructions Date of Service Aug 02, 2017. Admission Reason for Admission: UGIB Discharge Discharge Diagnosis / Problem: GI bleeding Discharge Goals Goal(s): Decrease discomfort, Improve function Activity Recommendations Activity Limitations: resume your previous activity Exercise/Sports Limitations: as tolerated . Instructions / Follow-Up Instructions / Follow-Up Follow up with your PCP in 1 week (Office will call your with appointment) Follow up with your house calls nurse on 08/06/17 at 3:45pm Get repeat EGD/Colonoscopy as outpatient per recommendations of your house calls nurse Seek immediate medical attention if your symptoms reoccur or worsen Current Hospital Diet Patient's current hospital diet: Diabetes Type 2 Diet Discharge Diet Recommended Diet: Diabetes Type 2 Diet Procedures Procedures Performed: Colonoscopy Pending Studies Studies pending at discharge: no Laboratory Results Hemoglobin A1c Test 07/29/17 04:10 Range/Units Estimated Average Glucose 131 mg/dl Hemoglobin A1c 6.2 H 4.5-5.6 % Medical Emergencies . Who to Call and When: Medical Emergencies: If at any time you feel your situation is an emergency, please call 911 immediately. . Non-Emergent Contact Non-Emergency issues call your: Primary Care Provider, Raise Driller Call Non-Emergent contact if: you have a fever, your pain is not controlled, your pain is worsening, your pain is unusual for you, your pain is concerning you, you have any medication questions Seek immediate medical attention if your symptoms reoccur or worsen . . "Provider Documentation" section prepared by Srikanth Montero. . VTE Core Measure Inpt VTE Proph given/why not?: SCD's
[2017-08-02 13:46] VITALS: BP 162/89; PULSE 69; TEMP 36.7; O2SAT 97
== END 2017-08-02 14:20 | disposition home or self-care (01) | DRG 378 ==
LOC: C.EDB 04:39 → EDBD 04:39 → C.MED 06:35 → ENRESERV 07:13
PROVIDERS: ADMIT Internal Medicine; ATTEND Internal Medicine
PROC: 0DJ08ZZ Inspection of Upper Intestinal Tract, Via Natural or Artificial Opening Endoscopic (ICD-10-PCS; principal; 2017-07-29 14:39)
PROC: 0DJD8ZZ Inspection of Lower Intestinal Tract, Via Natural or Artificial Opening Endoscopic (ICD-10-PCS; 2017-07-31)
DX: K92.2 Gastrointestinal hemorrhage, unspecified (principal); D62 Acute posthemorrhagic anemia; E86.1 Hypovolemia; R73.03 Prediabetes; I10 Essential (primary) hypertension

== ENCOUNTER 2020-04-01 14:25 | Inpatient (IN) ==
[2020-04-01] MEDS ORDERED: SODIUM CHLORIDE 0.9% 500 ML IV ONE (14:38)
--- NOTE | 2020-04-01 14:43 | Emergency Department Note ---
Impression & Plan TIA (transient ischemic attack), GEMINI (acute kidney injury), Middle cerebral artery stenosis, Vertebral artery narrowing, Internal carotid artery stenosis ED Provider Note NAME: PRASANTH GARCIA AGE: 69 SEX: M : 1950 ARRIVES VIA: Walk-In INFORMANT: Patient ED PROVIDER(S): Roger Johnson DO CHIEF COMPLAINT: Left-sided weakness HPI: Patient is a 69-year-old male who presents the ER for left-sided weakness. This started at about 1:00pm while he was walking. He notes he was leaning to the left and he had trouble moving his left upper extremity with fine motor skills and grasp. He was also having trouble walking as he was having weakness in the left lower extremity. He notes he was leaning to his left side have trouble moving his leg. he notes that this lasted for about an hour and a half and resolved just prior to arrival to the ER. He denies any headaches change in vision chest pain shortness of breath nausea vomiting or diarrhea. No other exacerbating or remitting factors. Patient notes that he is never had this before. He denies taking any blood thinners. ROS: See above HPI for pertinent positives & negatives. A total of 10 systems reviewed and were otherwise negative. PAST MEDICAL HISTORY:See Below PAST SURGICAL HISTORY:See Below FAMILY HISTORY:See Below SOCIAL HISTORY:See Below HOME MEDICATIONS:See Below ALLERGIES:See Below VITALS:See Below PHYSICAL EXAMINATION: GENERAL: Sitting up in bed, alert, well appearing, well nourished, no distress, non-toxic EYE EXAM: normal conjunctiva. PERRL and EOM's intact. OROPHARYNX: no exudate, no erythema, lips, buccal mucosa, and tongue normal and mucous membranes are moist NECK: supple, no nuchal rigidity, no adenopathy, non-tender LUNGS: Clear to auscultation. Normal chest wall mechanics HEART: no murmurs, S1 normal and S2 normal ABDOMEN: abdomen soft, non-tender, normo-active bowel sounds, no masses, no rebound or guarding. BACK: Back is symmetrical on inspection and there is no deformity, no midline tenderness, no CVA tenderness. SKIN: no rashes and no bruising UPPER EXTREMITIES: upper extremities are grossly normal. LOWER EXTREMITIES: No pitting edema. NEURO EXAM: Normal sensorium, cranial nerves II-XII intact, normal speech, no weakness of arms, no weakness of legs. No drift. Finger to nose intact. Gross sensation intact. Able to stand and walk without difficulty MEDICAL DECISION MAKING: Patient is a 69-year-old male who presents the ER for left-sided weakness including his left upper and left lower extremity. Lasted for about an hour and a half and then completely resolved. He is neurologically intact on my exam. IV was established blood work was obtained and shows no significant leukocytosis or anemia. INR was unremarkable. BMP shows slightly elevated BUN. Glucose was slightly elevated as well. LFTs bilirubin and magnesium was unremarkable. Troponin was negative. CT of his head showed no acute infarct. 1 view of the chest was unremarkable. CT angiogram did show several areas of stenosis. Patient was updated at bedside. Patient was discussed with hospitalist and admitted for further work-up. He was given IV fluids and remained comfortable while in the ER. Triage Nursing notes reviewed. Prior medical records reviewed Vital Signs: reviewed and remarkable for hypertensive Differential diagnosis: Differential Diagnosis includes but is not limited to ischemic Stroke, hemorrhagic stroke, bells palsy, mass, neoplasm, migraine headache, seizure, subarachnoid hemorrhage, TIA, and transient global amnesia. ER treatment provided: See below Diagnostics interpreted by me: ECG: Sinus rhythm rate of 61 Left axis No PVCs Normal QTC Cardiac Monitoring: An order was placed for continuous cardiac monitoring. The monitor shows a rate of 61 with sinus rhythm. Laboratory studies: As stated above and show below. Imaging studies: CT of the head shows no acute pathology. CT Angio of the head and neck shows multiple areas of stenosis. Portable AP upright 1 view of the chest shows no focal infiltrate. Consultation(s): Discussed with Dr. Reynolds from [facility] [place] ED COURSE: Procedures: none Critical Care: None Past Med/Surg History Social History Preferred Language: [place] Feels Safe at Home: Yes Smoking Status: Never smoker Allergies Allergies Allergy/AdvReac Type Severity Reaction Status Date / Time No Known Allergies Allergy Unverified 04/01/20 15:18 Home Meds Home Medications Medication Instructions Recorded Confirmed amlodipine [Norvasc] 5 mg PO QAM 04/01/20 04/01/20 hydrochlorothiazide 12.5 mg PO QAM 04/01/20 04/01/20 losartan [Cozaar] 50 mg PO HS 04/01/20 04/01/20 metformin [Glucophage] 500 mg PO BIDM 04/01/20 04/01/20 Results & Data (ED) Vital Signs Vital Signs - 24 hr 04/01/20 14:27 04/01/20 14:39 04/01/20 14:42 Temperature 36.6 C Temperature Source Oral Pulse Rate 64 61 Pulse Rate from SpO2 Sensor Respiratory Rate 20 21 Respiratory Effort / Characteristics Non-Labored Respiratory Depth Normal Blood Pressure 151/67 H Blood Pressure Mean 95 Blood Pressure Position Sitting Pulse Oximetry 96 Oxygen Delivery Method Room Air Room Air Sepsis Recent Fever Within 48 Hours No Sepsis New/Unexplained Change in Mental Status No Sepsis Action Taken by Nursing No Action Required 04/01/20 15:30 04/01/20 16:00 04/01/20 16:13 Temperature Temperature Source Pulse Rate 66 60 59 L Pulse Rate from SpO2 Sensor 64 60 59 L Respiratory Rate 20 18 20 Respiratory Effort / Characteristics Respiratory Depth Blood Pressure 184/90 H Blood Pressure Mean 121 Blood Pressure Position Pulse Oximetry 96 96 95 Oxygen Delivery Method Sepsis Recent Fever Within 48 Hours Sepsis New/Unexplained Change in Mental Status Sepsis Action Taken by Nursing 04/01/20 16:30 Temperature Temperature Source Pulse Rate 57 L Pulse Rate from SpO2 Sensor 57 L Respiratory Rate 18 Respiratory Effort / Characteristics Respiratory Depth Blood Pressure 153/112 H Blood Pressure Mean 133 Blood Pressure Position Pulse Oximetry 96 Oxygen Delivery Method Sepsis Recent Fever Within 48 Hours Sepsis New/Unexplained Change in Mental Status Sepsis Action Taken by Nursing Laboratory Data Result diagrams: 04/01/20 14:40 04/01/20 14:40 Lab Results 04/01/20 04/01/20 04/01/20 Range/Units 14:36 14:40 14:40 WBC 8.56 (4.8-10.8) K/uL RBC 4.95 (4.7-6.1) M/uL Hgb 14.8 (14.0-18.0) g/dL POC Hgb (14.0-18.0) g/dl Hct 42.6 (42-52) % POC Hct (42-52) % MCV 86.1 (80-100) fL MCH 29.9 (25-34) pg MCHC 34.7 (32-36) g/dL RDW Std Deviation 40.3 (36.4-46.3) fL RDW Coeff of Jordan 12.8 (11.5-14.5) % Plt Count 237 (130-400) K/uL MPV 8.8 (7.4-10.4) fL Immature Gran % (Auto) 0.2 % Neut % (Auto) 66.1 % Lymph % (Auto) 24.1 % [place] % (Auto) 8.1 % Eos % (Auto) 1.1 % Baso % (Auto) 0.4 % Immature Gran # (Auto) 0.02 (0.00-0.02) K/uL Neut # (Auto) 5.67 (1.4-6.5) K/uL Lymph # (Auto) 2.06 (1.2-3.4) K/uL [place] # (Auto) 0.69 H (0.11-0.59) K/uL Eos # (Auto) 0.09 (0-0.5) K/uL Baso # (Auto) 0.03 (0-0.2) K/uL PT 10.2 (9.0-12.0) Seconds INR 1.0 (0.9-1.1) APTT 30.5 (21.0-31.0) Seconds PTT Ratio 1.1 POC Sodium (135-144) mmol/L Sodium (136-145) mmol/L POC Potassium (3.3-5.0) mmol/L Potassium (3.5-5.1) mmol/L POC Chloride (101-112) mmol/L Chloride (98-107) mmol/L Carbon Dioxide (21-32) mmol/L POC Total CO2 (24-31) mmol/L Anion Gap (3-11) POC Anion Gap (16-25) mmol/L POC BUN (7-18) mg/dl BUN (7-18) mg/dl Creatinine (0.6-1.4) mg/dl POC Creatinine (0.6-1.3) mg/dl Est Cr Clr Drug Dosing ml/min Est GFR ( Amer) Est GFR (Non-Af Amer) BUN/Creatinine Ratio (10-20) Glucose (70-99) mg/dl POC Glucose 127 H (70-99) mg/dl POC Glucose (other) (70-99) mg/dl Calcium (8.5-10.1) mg/dl POC Ioniz Calcium Nilesh (1.12-1.32) mmol/l Magnesium (1.8-2.4) mg/dl Total Bilirubin (0.2-1) mg/dl AST (15-37) U/L ALT (12-78) U/L Alkaline Phosphatase (45-117) U/L Troponin I (0-0.045) ng/ml Total Protein (6.4-8.2) gm/dl Albumin (3.4-5.0) gm/dl Globulin (2.5-4.0) gm/dl Albumin/Globulin Ratio (0.9-2) 04/01/20 04/01/20 Range/Units 14:40 14:46 WBC (4.8-10.8) K/uL RBC (4.7-6.1) M/uL Hgb (14.0-18.0) g/dL POC Hgb 14.3 (14.0-18.0) g/dl Hct (42-52) % POC Hct 42 (42-52) % MCV (80-100) fL MCH (25-34) pg MCHC (32-36) g/dL RDW Std Deviation (36.4-46.3) fL RDW Coeff of Jordan (11.5-14.5) % Plt Count (130-400) K/uL MPV (7.4-10.4) fL Immature Gran % (Auto) % Neut % (Auto) % Lymph % (Auto) % [place] % (Auto) % Eos % (Auto) % Baso % (Auto) % Immature Gran # (Auto) (0.00-0.02) K/uL Neut # (Auto) (1.4-6.5) K/uL Lymph # (Auto) (1.2-3.4) K/uL [place] # (Auto) (0.11-0.59) K/uL Eos # (Auto) (0-0.5) K/uL Baso # (Auto) (0-0.2) K/uL PT (9.0-12.0) Seconds INR (0.9-1.1) APTT (21.0-31.0) Seconds PTT Ratio POC Sodium 139 (135-144) mmol/L Sodium 139 (136-145) mmol/L POC Potassium 3.9 (3.3-5.0) mmol/L Potassium 3.8 (3.5-5.1) mmol/L POC Chloride 102 (101-112) mmol/L Chloride 104 (98-107) mmol/L Carbon Dioxide 27 (21-32) mmol/L POC Total CO2 26 (24-31) mmol/L Anion Gap 8.0 (3-11) POC Anion Gap 17.0 (16-25) mmol/L POC BUN 25 H (7-18) mg/dl BUN 25 H (7-18) mg/dl Creatinine 1.43 H (0.6-1.4) mg/dl POC Creatinine 1.3 (0.6-1.3) mg/dl Est Cr Clr Drug Dosing 48.5 ml/min Est GFR ( Amer) 56.7 Est GFR (Non-Af Amer) 48.9 BUN/Creatinine Ratio 17.1 (10-20) Glucose 123 H (70-99) mg/dl POC Glucose (70-99) mg/dl POC Glucose (other) 126 H (70-99) mg/dl Calcium 9.3 (8.5-10.1) mg/dl POC Ioniz Calcium Nilesh 1.20 (1.12-1.32) mmol/l Magnesium 2.0 (1.8-2.4) mg/dl Total Bilirubin 0.5 (0.2-1) mg/dl AST 20 (15-37) U/L ALT 30 (12-78) U/L Alkaline Phosphatase 133 H (45-117) U/L Troponin I < 0.015 (0-0.045) ng/ml Total Protein 7.3 (6.4-8.2) gm/dl Albumin 3.7 (3.4-5.0) gm/dl Globulin 3.6 (2.5-4.0) gm/dl Albumin/Globulin Ratio 1.0 (0.9-2) Administered Medications Ioversol (Optiray 320 125ml) 119 ml IV ONCE PRN PRN Reason: Interaction Checking Stop: 04/05/20 15:03 Last Admin: 04/01/20 15:04 Dose: 119 ml Documented by: [id number] Discontinued Medications Aspirin (Ecotrin Ectab) 81 mg PO NOW STA Stop: 04/01/20 15:45 Last Admin: 04/01/20 16:41 Dose: 81 mg Documented by: [id number] Sodium Chloride (Nss) 500 mls @ 999 mls/hr IV .Q31M ONE Stop: 04/01/20 15:08 Last Infusion: 04/01/20 15:28 Dose: 0 mls/hr Documented by: [id number] Admin: 04/01/20 14:44 Dose: 999 mls/hr Documented by: [id number] Discharge Plan Visit Data Chief Complaint: Weakness Stated Complaint: LEFT SIDE WEAKNESS ED Provider: Roger Johnson Discharge Problem: TIA (transient ischemic attack), GEMINI (acute kidney injury), Middle cerebral artery stenosis, Vertebral artery narrowing, Internal carotid artery stenosis Forms Stand Alone Forms: [facility] [employer] Prescriptions Prescriptions: No Action losartan [Cozaar] 50 mg tablet 50 mg PO HS RF: 0 metformin [Glucophage] 500 mg tablet 500 mg PO BIDM RF: 0 amlodipine [Norvasc] 5 mg tablet 5 mg PO QAM RF: 0 hydrochlorothiazide 12.5 mg capsule 12.5 mg PO QAM RF: 0 Referrals Referrals: Ross Morfin MD [Primary Care Provider] - Discharge Problem: Middle cerebral artery stenosis Qualifiers: Laterality: unspecified laterality Qualified Code(s): I66.09 - Occlusion and stenosis of unspecified middle cerebral artery Vertebral artery narrowing Qualifiers: Laterality: unspecified laterality Qualified Code(s): I65.09 - Occlusion and stenosis of unspecified vertebral artery Internal carotid artery stenosis Qualifiers: Laterality: unspecified laterality Qualified Code(s): I65.29 - Occlusion and stenosis of unspecified carotid artery
[2020-04-01 14:49] LABS: Basophils # (auto) 0.03 K/uL (0-0.2); Basophils % (auto) 0.4 %; Eosinophils # (auto) 0.09 K/uL (0-0.5); Eosinophils % (auto) 1.1 %; Hematocrit (blood only) 42.6 % (42-52); Hemoglobin 14.8 g/dL (14.0-18.0); Immature Granulocytes # (auto) 0.02 K/uL (0.00-0.02); Immature Granulocytes % (auto) 0.2 %; Lymphocytes # (auto) 2.06 K/uL (1.2-3.4); Lymphocytes % (auto) 24.1 %; Mean Corpuscular Hemoglobin 29.9 pg (25-34); Mean Corpuscular Hgb Conc 34.7 g/dL (32-36); Mean Corpuscular Volume 86.1 fL (80-100); Mean Platelet Volume 8.8 fL (7.4-10.4); Monocytes # (auto) 0.69 K/uL (0.11-0.59); Monocytes % (auto) 8.1 %; Neutrophils # (auto) 5.67 K/uL (1.4-6.5); Neutrophils % (auto) 66.1 %; Platelet Count 237 K/uL (130-400); RDW Coefficient of Variation 12.8 % (11.5-14.5); RDW Standard Deviation 40.3 fL (36.4-46.3); Red Blood Count 4.95 M/uL (4.7-6.1); White Blood Count 8.56 K/uL (4.8-10.8)
[2020-04-01 14:59] LABS: iSTAT Creatinine 1.3 mg/dl (0.6-1.3); iSTAT Hemoglobin 14.3 g/dl (14.0-18.0); iSTAT Ionized Calcium 1.2 mmol/l (1.12-1.32); iSTAT Potassium 3.9 mmol/L (3.3-5.0)
[2020-04-01 15:00] LABS: Partial Thromboplastin Ratio 1.1; Partial Thromboplastin Time 30.5 Seconds (21.0-31.0); Prothrombin Time 10.2 Seconds (9.0-12.0)
[2020-04-01] MEDS ORDERED: OPTIRAY 320 125ml IV PRN (15:04)
[2020-04-01 15:06] LABS: Alanine Aminotransferase 30 U/L (12-78); Albumin Level 3.7 gm/dl (3.4-5.0); Aspartate Aminotransferase 20 U/L (15-37); BUN Creatinine Ratio 17.1 (10-20); Blood Urea Nitrogen 25 mg/dl (7-18); Calcium 9.3 mg/dl (8.5-10.1); Carbon Dioxide 27 mmol/L (21-32); Chloride 104 mmol/L (98-107); Creatinine Clr Calc Pharmacy 48.5 ml/min; Est GFR (African American) 56.7; Est GFR (Non-African American) 48.9; Glucose 123 mg/dl (70-99); Potassium 3.8 mmol/L (3.5-5.1); Sodium 139 mmol/L (136-145)
--- NOTE | 2020-04-01 15:09 | CT Scan Report ---
CT head/brain wo con CT DOSE: HISTORY: Mental status change Stroke evaluation TECHNIQUE: Multiaxial CT images of the head were performed without the use of intravenous contrast. A dose lowering technique was utilized adhering to the principles of ALARA. Comparison: None. Findings: The paranasal sinuses and mastoid air cells are clear. The calvarium and skull base are int act. The ventricles and sulci are within normal limits. There is no mass, hematoma, midline shift, or acute infarct. Impression: No acute intracranial abnormality. ACT 112: Negative or not required by law. The above report was generated using voice recognition software. It may contain grammatical, syntax or spelling errors. Electronically signed by: Ross Garcia M.D. 04/01/2020 3:07 PM
[2020-04-01 15:11] LABS: Alkaline Phosphatase 133 U/L (45-117); Bilirubin,Total 0.5 mg/dl (0.2-1); Globulin 3.6 gm/dl (2.5-4.0); Total Protein 7.3 gm/dl (6.4-8.2); Troponin I < 0.015 ng/ml (0-0.045)
--- NOTE | 2020-04-01 15:13 | CT Scan Report ---
CT angio neck with con HISTORY: Mental status change Stroke evaluation TECHNIQUE: Multiaxial CT angiography of the neck was performed IV contrast: 100 cc nonionic All sahil urements were calculated based on NASCET criteria. Maximum intensity projection images were also obt ained. A dose lowering technique was utilized adhering to the principles of ALARA. COMPARISON STUDY: None. FINDINGS: Considerable plaque formation at the carotid bifurcations. 70% to 80 stenosis origin left i nternal carotid artery as well as left carotid bifurcation. 30% narrowing right internal carotid artery and right carotid bifurcation. No significant stenotic process of the vertebral basilar system. IMPRESSION: 1. Considerable plaque formation the carotid bifurcations bilaterally. 2. 70-80% stenosis origin left internal carotid artery. 3. 30% narrowing right internal carotid artery at its origin. ACT 112: Negative or not required by law. The above report was generated using voice recognition software. It may contain grammatical, syntax or spelling errors. Electronically signed by: Ross Garcia M.D. 04/01/2020 3:12 PM
--- NOTE | 2020-04-01 15:14 | XRay Report ---
XR chest 1V portable CLINICAL HISTORY: cva mental status change COMPARISON STUDY: 04/01/2020 FINDINGS: The bones soft tissues and hemidiaphragms are normal. The cardiomediastinal silhouette is n ormal. The lungs are clear. The pulmonary vasculature is normal. IMPRESSION: Negative chest. ACT 112: Negative or not required by law. The above report was generated using voice recognition software. It may contain grammatical, syntax or spelling errors. Electronically signed by: Ross Garcia M.D. 04/01/2020 3:13 PM
--- NOTE | 2020-04-01 15:18 | CT Scan Report ---
CT angio head w con HISTORY: Mental status change Stroke evaluation TECHNIQUE: Multiaxial CT angiography of the head was performed IV contrast: 100 cc nonionic Maximu m intensity projection images were also obtained. A dose lowering technique was utilized adhering to the principles of ALARA. COMPARISON: None. FINDINGS: There is no mass, hematoma, midline shift, or acute infarct. Anterior and middle cerebral c irculation demonstrates minimal scattered plaque formation. No evidence for high-grade stenosis. 50% narrowing origin right middle cerebral. Posterior cerebral circulation shows evidence for a 60-70% stenosis of the proximal left posterior ce rebral artery. IMPRESSION: 1. 60-70% % stenosis proximal left posterior cerebral artery. 2. 50% narrowing origin right middle cerebral artery. ACT 112: Negative or not required by law. The above report was generated using voice recognition software. It may contain grammatical, syntax or spelling errors. Electronically signed by: Ross Garcia M.D. 04/01/2020 3:17 PM
[2020-04-01] MEDS ORDERED: ASPIRIN 81 MG ECTAB PO STA (15:44)
--- NOTE | 2020-04-01 15:55 | History & Physical Report ---
Date of Service April 01, 2020 Assessment & Plan (1) TIA (transient ischemic attack): Patient presented with left-sided weakness lasting for 1 and half hour-TIA symptoms Did not had any garbled speech, facial droop, or confusion Symptoms completely resolved prior to arrival to ER-no stroke alert was called,/ patient is not a candidate for TPA CTA of neck: IMPRESSION: 1. Considerable plaque formation the carotid bifurcations bilaterally. 2. 70-80% stenosis origin left internal carotid artery. 3. 30% narrowing right internal carotid artery at its origin. CT angiogram of head: IMPRESSION: 1. 60-70% % stenosis proximal left posterior cerebral artery. 2. 50% narrowing origin right middle cerebral artery. CT head noncontrast no acute CVA Patient started on dual antiplatelet aspirin 81 mg/Plavix 75 mg daily Lipitor 10 mg daily, ordered for fasting lipid panel Ordered for stroke work-up: r MRI of brain with and without contrast, echocardiogram, patient will be admitted to telemetry unit to assess for arrhythmia Neurology consulted, (2) Carotid artery disease: CT a of neck shows left-sided 70-80% stenosis Patient presents with TIA /strokelike symptoms Started on dual antiplatelets, statin Vascular surgery consulted for recommendation (3) HTN (hypertension): We will hold off patient's losartan/HCTZ, Amlodipine 5 mg by mouth daily (4) Acute renal failure superimposed on stage 3 chronic kidney disease: Creatinine elevated 1.4, Hold HCTZ/losartan Patient received contrast for CTA of head and neck Ordered for IV fluids, Repeat BMP in a.m., Type 2 diabetes: Hold metformin-patient received contrast for imaging studies Insulin sliding scale Hemoglobin A1c in a.m. lab CODE STATUS: Full code DVT prophylaxis: Subcu heparin Disposition: Expected to be discharged home when medically stable Family physician follow-up with Dr. Ross Morfin History of Present Illness Chief Complaint: Left-sided transient weakness Primary Care Provider: Ross Morfin MD This is a 69-year-old male with past medical history of hypertension, CKD stage III presented to the ER today with complaint of . Left-sided weakness lasted for few hours Around 1 PM today patient and his was walking, he noted he was leaning to the left, had weakness on the left leg, did not sustain any fall, had trouble moving left upper extremity, While getting back into the car patient found it difficult to open the door using left hand. No facial droop, no garbled speech, no confusion noted Did not had any headache, no visual change no shortness of breath no chest pain Symptoms lasted for an hour and a half, patient's drove him to the ER, symptoms was completely resolved before arrival to [facility] Patient never had prior history of stroke or TIA Allergies Allergy/AdvReac Type Severity Reaction Status Date / Time No Known Allergies Allergy Unverified 04/01/20 15:18 Home Medications Home Medications Medication Instructions Recorded Confirmed Type amlodipine [Norvasc] 5 mg PO QAM 04/01/20 04/01/20 History hydrochlorothiazide 12.5 mg PO QAM 04/01/20 04/01/20 History losartan [Cozaar] 50 mg PO HS 04/01/20 04/01/20 History metformin [Glucophage] 500 mg PO BIDM 04/01/20 04/01/20 History Past Med/Surg History Social History Preferred Language: Japanese Feels Safe at Home: Yes Smoking Status: Never smoker Review of Systems Review of Systems: All systems reviewed & are unremarkable except as noted in HPI & below Constitutional: + weakness (Left-sided weakness) Respiratory: no cough, no dyspnea and no wheezing Cardiovascular: no chest pain, no dyspnea, no dyspnea on exertion and no syncope Neurologic: + localized weakness (Left-sided transient weakness); no dizziness, no syncope, no headache(s), no abnormal speech, no confusion and no memory loss Physical Exam Constitutional: WD/WN, vitals as above no acute distress Eyes: PERRL, conjunctivae normal, anicteric sclerae ENMT: external ear and nose normal, oropharynx normal Neck: trachea midline, no thyromegaly Respiratory: normal respiratory effort, lungs clear to auscultation Cardiovascular: RRR, no murmur, no edema Gastrointestinal (Abdomen): normal bowel sounds, soft, nontender, no hepatosplenomegaly Musculoskeletal: no cyanosis or clubbing, extremities motor strength 5/5 Skin: no rashes, warm and dry Neurologic: PERRL, EOMI, accommodation nl, no face palsy, no dysarthria normal touch/pain/proprioception and CN's II-XI intact bilaterally; no focal motor deficits Psychiatric: A+Ox3, euthymic affect Results & Data Results & Data ([facility]) Vital Signs (Past 12 Hours) Vital Signs Temp Pulse Resp BP Pulse Ox 04/01/20 14:27 36.6 C 64 20 151/67 H 96 Diagnostic Findings CTA of neck: IMPRESSION: 1. Considerable plaque formation the carotid bifurcations bilaterally. 2. 70-80% stenosis origin left internal carotid artery. 3. 30% narrowing right internal carotid artery at its origin. CT angiogram of head: IMPRESSION: 1. 60-70% % stenosis proximal left posterior cerebral artery. 2. 50% narrowing origin right middle cerebral artery. CT head noncontrast: Impression: No acute intracranial abnormality. (1) Carotid artery disease Carotid artery disease type: stenosis (2) HTN (hypertension) Hypertension type: essential hypertension Qualified Code(s): I10 - Essential (primary) hypertension
[2020-04-01] MEDS ORDERED: SODIUM CHLORIDE 0.9% 1000ML 1,000 ML IV SCH (16:00)
[2020-04-01] MEDS ORDERED: CLOPIDOGREL BISULFATE 75 MG TAB PO ONE (16:41)
[2020-04-01] MEDS ORDERED: GLUCOSE 40% GEL 15 GM TUBE PO PRN (17:03)
[2020-04-01] MEDS ORDERED: ACETAMINOPHEN 325 MG TAB PO PRN (17:03)
[2020-04-01] MEDS ORDERED: POLYETHYLENE (MIRALAX) 17 GM PACK PO PRN (17:03)
[2020-04-01] MEDS ORDERED: DEXTROSE 50% 50 ML SYRINGE IV PRN (17:03)
[2020-04-01] MEDS ORDERED: PHARMACIST DISCHARGE MED REC CONSULT PRN (17:03)
[2020-04-01] MEDS ORDERED: ONDANSETRON INJ 2 MG/ML 2 ML VIAL IV PRN (17:03)
[2020-04-01] MEDS ORDERED: ALUMINUM/MAGNESIUM SUSP 30 ML UDC PO PRN (17:03)
[2020-04-01] MEDS ORDERED: CARBOHYDRATES FOR HYPOGLYCEMIA PO PRN (17:03)
[2020-04-01] MEDS ORDERED: MAGNESIUM HYDROXIDE SUSP 30 ML UDC PO PRN (17:03)
[2020-04-01] MEDS ORDERED: GLUCOSE 10 TABS/TUBE PO PRN (17:03)
[2020-04-01] MEDS ORDERED: GLUCAGON FOR INJ 1 MG VIAL SQ PRN (17:03)
[2020-04-01] MEDS ORDERED: GADOBUTROL 65ML VIAL IV PRN (18:08)
--- NOTE | 2020-04-01 18:20 | Magnetic Resonance Report ---
MR brain wo/w con CLINICAL HISTORY: TIA mental status change COMPARISON STUDY: No previous studies for comparison. TECHNIQUE: Utilizing a 1.5 Vivien magnet and dedicated coil, multiplanar, multiecho imaging of the br ain was performed pre and postcontrast administration. IV administration of 7 mL of Gadavist contras t was uneventful. FINDINGS: Diffusion images are normal. No evidence for an acute ischemic event. Signal characteristics of the cerebellar as well as cerebral hemispheres indicate mild chronic small vessel change of aging. Ventricular system is midline. No abnormal postcontrast enhancement. IMPRESSION: No acute process. Mild age-related change. ACT 112: Negative or not required by law. The above report was generated using voice recognition software. It may contain grammatical, syntax or spelling errors. Electronically signed by: Ross Garcia M.D. 04/01/2020 6:19 PM
[2020-04-01] MEDS ORDERED: AMLODIPINE BESYLATE 5 MG TAB PO STA (18:23)
[2020-04-01] MEDS: INSULIN ASPART 100 UNITS/ML 3 ML PEN SC SCH ×2 (18:30→21:17)
[2020-04-01] MEDS: HEPARIN SOD 5,000 UNIT/0.5 ML VIAL SQ SCH (21:18)
[2020-04-02] MEDS: HEPARIN SOD 5,000 UNIT/0.5 ML VIAL SQ SCH ×2 (05:36→13:31)
[2020-04-02 07:16] LABS: Estimated Average Glucose 128 mg/dl; Hemoglobin A1C 6.1 % (4.5-5.6)
[2020-04-02 07:19] LABS: Basophils # (auto) 0.02 K/uL (0-0.2); Basophils % (auto) 0.3 %; Eosinophils # (auto) 0.06 K/uL (0-0.5); Eosinophils % (auto) 0.9 %; Hematocrit (blood only) 40.6 % (42-52); Hemoglobin 13.8 g/dL (14.0-18.0); Immature Granulocytes # (auto) 0.02 K/uL (0.00-0.02); Immature Granulocytes % (auto) 0.3 %; Lymphocytes # (auto) 1.63 K/uL (1.2-3.4); Lymphocytes % (auto) 23.7 %; Mean Corpuscular Hemoglobin 29.4 pg (25-34); Mean Corpuscular Volume 86.4 fL (80-100); Mean Platelet Volume 8.9 fL (7.4-10.4); Monocytes % (auto) 8.7 %; Neutrophils # (auto) 4.55 K/uL (1.4-6.5); Neutrophils % (auto) 66.1 %; Platelet Count 234 K/uL (130-400); RDW Coefficient of Variation 12.7 % (11.5-14.5); RDW Standard Deviation 40.4 fL (36.4-46.3); White Blood Count 6.88 K/uL (4.8-10.8)
[2020-04-02 07:56] LABS: BUN Creatinine Ratio 17.7 (10-20); Calcium 8.8 mg/dl (8.5-10.1); Creatinine Clr Calc Pharmacy 56.6 ml/min; Est GFR (African American) 68.7; Est GFR (Non-African American) 59.3; Potassium 3.5 mmol/L (3.5-5.1)
[2020-04-02] MEDS ORDERED: ATORVASTATIN 40 MG TAB PO SCH (09:00)
[2020-04-02] MEDS ORDERED: ASPIRIN 81 MG ECTAB PO SCH (09:00)
[2020-04-02] MEDS ORDERED: AMLODIPINE BESYLATE 5 MG TAB PO SCH (09:00)
[2020-04-02] MEDS ORDERED: ATORVASTATIN 10 MG TAB PO SCH (09:00)
[2020-04-02] MEDS: INSULIN ASPART 100 UNITS/ML 3 ML PEN SC SCH ×2 (09:01→12:35)
--- NOTE | 2020-04-02 11:20 | Consultation ---
Date of Consultation April 02, 2020 Assessment & Plan (1) Internal carotid artery stenosis: Pt with noted approx 70% stenosis of L ICA on CTA neck. R ICA 30%. R hemispheric sx of possible TIA vs other cause, and no CVA noted on MRI. All sx resolved, and pt feeling well. No indications for vascular surgical intervention at this time. Recommend 81mg ASA if no contraindications. Will see in office in 6 months with carotid US for surveillance. Pt agreeable. Please call if needed otherwise. Patient chart reviewed. Agree with exam and treatment plan of the Vascular PA. No contrindication for plavix. Thank you very much for letting us participate in the care of this patient. Laterality: unspecified laterality Qualified Code(s): I65.29 - Occlusion and stenosis of unspecified carotid artery History of Present Illness Reason for Consultation: possible R hemispheric TIA Attending Physician: Chico Ramos MD History of Present Illness 69 yo m with hx of HTN, admitted with L arm and leg movement abnormalities, seen in consultation for L ICA stenosis noted on CTA neck. Pt states never prior similar sx. States he was ambulating with his as usual and she noted he was listing toward the left and didn't swing his L arm during the walk. Pt states may have been dragging his L foot a little as well. Pt states he was still able to move his l arm and leg intentionally without any numbness or tingling. Did not fall or stumble. No facial droop or dysarthria/aphasia, no amaurosis. Denies CONTRERAS, fever, recent illness, chest pain, SOB, abd pain, N/V, rest pain, claudication, other complaints. Allergies Allergy/AdvReac Type Severity Reaction Status Date / Time No Known Allergies Allergy Unverified 04/01/20 15:18 Home Medications Home Medications Medication Instructions Recorded Confirmed Type amlodipine [Norvasc] 5 mg PO QAM 04/01/20 04/01/20 History hydrochlorothiazide 12.5 mg PO QAM 04/01/20 04/01/20 History losartan [Cozaar] 50 mg PO HS 04/01/20 04/01/20 History metformin [Glucophage] 500 mg PO BIDM 04/01/20 04/01/20 History Patient History Medical History HTN (hypertension) Social History Preferred Language: Hungarian Communication Ability: Effective Research Software Engineer Required: No Beliefs That Will Affect Care: None Current Living Situation: Spouse Other Information That Helps Us Care for You: No Feels Safe at Home: Yes Safety Concerns: Feels Safe At This Time Smoking Status: Never smoker Hx Alcohol Use: Yes Hx Substance Use: No Review of Systems Review of Systems: All systems reviewed & are unremarkable except as noted in HPI & below Physical Exam Constitutional: WD/WN, vitals as above healthy appearing, cooperative and comfortable; not in distress Eyes: PERRL, conjunctivae normal, anicteric sclerae ENMT: external ear and nose normal, oropharynx normal Ears: no hearing impairment Neck: trachea midline, no thyromegaly normal visual inspection Respiratory: normal respiratory effort, lungs clear to auscultation Cardiovascular: RRR, no murmur, no edema Vessels: posterior tibial pulses present, dorsalis pedis pulses present, brachial pulses present and radial pulses present; + abnormal peripheral pulses Extremities: normal capillary refill; no edema Gastrointestinal (Abdomen): normal bowel sounds, soft, nontender, no hepatos plenomegaly Musculoskeletal: no cyanosis or clubbing, extremities motor strength 5/5 Skin: no rashes, warm and dry Neurologic: moves all extremities and awake; no focal motor deficits and not confused Psychiatric: A+Ox3, euthymic affect Results & Data Vital Signs (Past 12 Hours) Vital Signs Temp Pulse Pulse Resp BP Pulse Ox 04/02/20 07:57 36.7 C 60 18 153/85 H 95 04/02/20 04:00 36.7 C 56 L 18 160/84 H 96 04/02/20 00:00 46 L 04/01/20 23:35 36.6 C 49 L 18 120/60 96
--- NOTE | 2020-04-02 13:40 | Neurology Consultation ---
Date of Consultation April 02, 2020 Assessment & Plan (1) HTN (hypertension): (2) TIA (transient ischemic attack): A 69-year-old male with a history of chronic kidney disease as well as hypertension admitted with possible transient ischemic attack. Symptoms are illdefined and patient denies weakness. Patient currently back to baseline. Neuro examine non focal. MRI brain showed no evidence of an acute ischemic stroke. CTA head and neck did show significant stenosis of the left ICA which is likely an incidental finding. Vascular surgery consulted and recommended maximal medical therapy with follow-up in 6 months. Agree with starting dual antiplatelet for 21 days. Then aspirin 81 mg daily. Recommend high intensity statin, Lipitor 40 mg daily. Outpatient neurology follow up in 8 weeks. History of Present Illness Reason for Consultation: Right sided weakness Attending Physician: Chico Ramos MD History of Present Illness A 69-year-old M with past medical history of HTN, CKD stage III presented to the ER today with complaint of transient Left-sided weakness lasted for few hours. Symptom onset around 1 PM on 04/01/20. patient and his was walking, he noted he was leaning to the left, had weakness on the left leg, did not sustain any fall, had trouble moving left upper extremity, While getting back into the car patient found it difficult to open the door using left hand. No facial droop, no garbled speech, no confusion noted. Did not had any headache, no visual change no shortness of breath no chest pain. Symptoms lasted for an hour and a half, patient's drove him to the ER, symptoms was completely resolved before arrival to [facility] Allergies Allergy/AdvReac Type Severity Reaction Status Date / Time No Known Allergies Allergy Unverified 04/01/20 15:18 Home Medications Home Medications Medication Instructions Recorded Confirmed Type amlodipine [Norvasc] 5 mg PO QAM 04/01/20 04/01/20 History hydrochlorothiazide 12.5 mg PO QAM 04/01/20 04/01/20 History losartan [Cozaar] 50 mg PO HS 04/01/20 04/01/20 History metformin [Glucophage] 500 mg PO BIDM 04/01/20 04/01/20 History aspirin 81 mg PO QAM 30 Days #30 tab 04/02/20 Rx atorvastatin 40 mg PO QAM 30 Days #30 tab 04/02/20 Rx clopidogrel 75 mg PO QAM 21 Days #21 tab 04/02/20 Rx Patient History Medical History HTN (hypertension) Social History Preferred Language: Guatemalan Communication Ability: Effective Account Receivable Associate Required: No Beliefs That Will Affect Care: None Current Living Situation: Spouse Other Information That Helps Us Care for You: No Feels Safe at Home: Yes Safety Concerns: Feels Safe At This Time Smoking Status: Never smoker Hx Alcohol Use: Yes Hx Substance Use: No Physical Exam Physical Exam: EXAM: Constitutional: appearance normally developed Face: normocephalic and atraumatic Eyes: normal lids, normal conjunctiva Neck: supple Respiratory: normal effort Cardiovascular: normal pulses Abdomen: non distended Skin: no rashes, lesions, or ulcers noted Psychiatric: normal mood and normal affect NEUROLOGIC EXAMINATION: Appearance: no acute distress Orientation: awake, alert and oriented x 3 Mental Status: alert Attention: normal Knowledge: appropriate Language: no aphasia Speech: no dysarthria Cranial Nerves: CN 2 - no visual defect on confrontation and pupils round, equal, reactive to light CN 3, 4, 6 - extra-ocular movements intact CN 5 - facial sensation intact CN 7 - no facial asymmetry CN 8 - intact hearing CN 9, 10 - palate symmetric CN 11 - good shoulder shrug CN 12 - tongue midline Gait: stable, no ataxia and can perform tandem walking Coordination: no ataxia with finger to nose testing Sensory: intact and symmetric to light touch Muscle Tone: normal Muscle exam: Reflexes: Results & Data Vital Signs (Past 12 Hours) Vital Signs Temp Pulse Resp BP Pulse Ox 04/02/20 11:23 36.6 C 60 18 156/83 H 96 04/02/20 10:55 94 04/02/20 07:57 36.7 C 60 18 153/85 H 95 04/02/20 04:00 36.7 C 56 L 18 160/84 H 96 Diagnostic Findings MRI brain w/wo: No acute process. Mild age-related change CTA head and neck: 1. Considerable plaque formation the carotid bifurcations bilaterally. 2. 70-80% stenosis origin left internal carotid artery. 3. 30% narrowing right internal carotid artery at its origin. (1) HTN (hypertension) Hypertension type: essential hypertension Qualified Code(s): I10 - Essential (primary) hypertension
[2020-04-02] MEDS ORDERED: ACETAMINOPHEN 325 MG TAB PO PRN (14:05)
[2020-04-02] MEDS ORDERED: CLOPIDOGREL BISULFATE 75 MG TAB PO SCH (14:15)
[2020-04-02] MEDS ORDERED: STROKE PATIENT DISCHARGE STA (15:26)
--- NOTE | 2020-04-02 15:40 | Hospitalist Progress Note ---
Date of Service April 02, 2020 Assessment & Plan (1) TIA (transient ischemic attack): -Patient presented with left-sided weakness lasting for 1 and half hour- TIA symptoms Did not had any garbled speech, facial droop, or confusion Symptoms completely resolved prior to arrival to ER-no stroke alert was called,/ patient is not a candidate for TPA CTA of neck: IMPRESSION: 1. Considerable plaque formation the carotid bifurcations bilaterally. 2. 70-80% stenosis origin left internal carotid artery. 3. 30% narrowing right internal carotid artery at its origin. CT angiogram of head: IMPRESSION: 1. 60-70% % stenosis proximal left posterior cerebral artery. 2. 50% narrowing origin right middle cerebral artery. CT head noncontrast no acute CVA Patient started on dual antiplatelet aspirin 81 mg/Plavix 75 mg daily, Lipitor, echocardiogram unremarkable Neurology consult on 04/02/2020, Neurology consult on 04/02/2020, Dr. Crandall (A 69-year-old male with a history of chronic kidney disease as well as hypertension admitted with a transient ischemic attack. Patient currently back to baseline. MRI brain showed no evidence of an acute ischemic stroke. CTA head and neck did show significant stenosis of the left ICA which is likely an incidental finding. Vascular surgery consulted and recommended maximal medical therapy with follow-up in 6 months. Agree with starting dual antiplatelet for 21 days. Then aspirin 81 mg daily. Recommend high intensity statin, Lipitor 40 mg daily.) discharge medications sent electronically to [facility], [place] [address] of plavix (clopidogrel) 75 mg daily for 3 weeks, aspirin as a 30 day medication with 1 refill, atorvastatin as 40 mg daily prescription for 30 day supply 04/04/2020 11:20 AM Provider Ross Morfin MD Department Family Practice [facility] 05/03/2020 11:20 AM Provider Claudia Chen PA-C Department Neurology [facility] (2) Carotid artery disease: Internal carotid artery stenosis (primarily of left carotid artery) -CT a of neck shows left-sided 70-80% stenosis, Patient presents with TIA /strokelike symptoms, Started on dual antiplatelets, statinVascular consult 04/02/2020 -as per 04/02/2020 vascular surgery consult, Dr. Beauchamp: Pt with noted approx 70% stenosis of L ICA on CTA neck. R ICA 30%. R hemispheric sx of possible TIA vs other cause, and no CVA noted on MRI. All sx resolved, and pt feeling well. No indications for vascular surgical intervention at this time. (3) HTN (hypertension): patient can resume home dose blood pressure medications (4) Acute renal failure superimposed on stage 3 chronic kidney disease: Acute Kidney Injury on Chronic Kidney Disease (acute kidney injury resolved) -admission creatinine 1.4, was on IV fluids -renal function has returned to baseline as of 04/02/2020 Type 2 diabetes mellitus without long-term current use of insulin -can resume home dose metformin on discharge CODE STATUS: Full code Admission and Anticipated Discharge Date Admission Date: April 01, 2020 Subjective no weakness. no chest pain. no palpitations. no shortness of breath. no nausea. no vomiting. no dizziness. no headache. no fevers. patient reports motor functions at baseline. Review of Systems Review of Systems: All systems reviewed & are unremarkable except as noted in Subjective Physical Exam Constitutional: WD/WN, vitals as above Eyes: PERRL, conjunctivae normal, anicteric sclerae EOM intact bilaterally ENMT: external ear and nose normal, oropharynx normal Neck: normal visual inspection Respiratory: normal respiratory effort, lungs clear to auscultation Cardiovascular: Rate/Rhythm: + bradycardic Gastrointestinal (Abdomen): normal bowel sounds, soft, nontender, no hepatosplenomegaly Musculoskeletal: Head/Neck/Chest: normocephalic and head atraumatic Neurologic: PERRL, EOMI, accommodation nl, no face palsy, no dysarthria CN's II-XI intact bilaterally Psychiatric: A+Ox3, euthymic affect Results & Data Results & Data ([facility]) Vital Signs (Past 12 Hours) Vital Signs Temp Pulse Resp BP Pulse Ox 04/02/20 15:16 36.5 C 60 20 159/80 H 97 04/02/20 11:23 36.6 C 60 18 156/83 H 96 04/02/20 10:55 94 04/02/20 07:57 36.7 C 60 18 153/85 H 95 04/02/20 04:00 36.7 C 56 L 18 160/84 H 96 (1) Carotid artery disease Carotid artery disease type: stenosis (2) HTN (hypertension) Hypertension type: essential hypertension Qualified Code(s): I10 - Essential (primary) hypertension
--- NOTE | 2020-04-02 15:50 | Discharge Summary ---
Date of Service April 02, 2020 Admission HPI Per Admitting Provider This is a 69-year-old male with past medical history of hypertension, CKD stage III presented to the ER today with complaint of . Left-sided weakness lasted for few hours Around 1 PM today patient and his was walking, he noted he was leaning to the left, had weakness on the left leg, did not sustain any fall, had trouble moving left upper extremity, While getting back into the car patient found it difficult to open the door using left hand. 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 Acute Kidney Injury on Chronic Kidney Disease (acute kidney injury resolved) Discharge Exam Constitutional WD/WN, vitals as above Eyes PERRL, conjunctivae normal, anicteric sclerae EOM intact bilaterally ENMT external ear and nose normal, oropharynx normal Neck normal visual inspection Respiratory normal respiratory effort, lungs clear to auscultation Cardiovascular Rate/Rhythm: + bradycardic Gastrointestinal (Abdomen) normal bowel sounds, soft, nontender, no hepatosplenomegaly Musculoskeletal Head/Neck/Chest: normocephalic and head atraumatic Neurologic PERRL, EOMI, accommodation nl, no face palsy, no dysarthria CN's II-XI intact bilaterally Psychiatric A+Ox3, euthymic affect Discharge Data Allergies Allergy/AdvReac Type Severity Reaction Status Date / Time No Known Allergies Allergy Unverified 04/01/20 15:18 Consultations 04/01/20 15:30 ED Decision to Admit Stat 04/01/20 17:03 Consult Case Management - Discharge Planning Routine Consult Neurology Routine Consult Vascular Surgery Routine Ordered Studies 04/01/20 14:39 CT angio head w con Stat CT angio neck with con Stat CT head/brain wo con Stat 04/01/20 17:03 MR brain wo/w con Stat Hospital Course (1) TIA (transient ischemic attack): -Patient presented with left-sided weakness lasting for 1 and half hour- TIA symptoms Did not had any garbled speech, facial droop, or confusion Symptoms completely resolved prior to arrival to ER-no stroke alert was called,/ patient is not a candidate for TPA CTA of neck: IMPRESSION: 1. Considerable plaque formation the carotid bifurcations bilaterally. 2. 70-80% stenosis origin left internal carotid artery. 3. 30% narrowing right internal carotid artery at its origin. CT angiogram of head: IMPRESSION: 1. 60-70% % stenosis proximal left posterior cerebral artery. 2. 50% narrowing origin right middle cerebral artery. CT head noncontrast no acute CVA Patient started on dual antiplatelet aspirin 81 mg/Plavix 75 mg daily, Lipitor, echocardiogram unremarkable Neurology consult on 04/02/2020, Neurology consult on 04/02/2020, Dr. Crandall (A 69-year-old male with a history of chronic kidney disease as well as hypertension admitted with a transient ischemic attack. Patient currently back to baseline. MRI brain showed no evidence of an acute ischemic stroke. CTA head and neck did show significant stenosis of the left ICA which is likely an incidental finding. Vascular surgery consulted and recommended maximal medical therapy with follow-up in 6 months. Agree with starting dual antiplatelet for 21 days. Then aspirin 81 mg daily. Recommend high intensity statin, Lipitor 40 mg daily.) discharge medications sent electronically to [facility], [place] [address] of plavix (clopidogrel) 75 mg daily for 3 weeks, aspirin as a 30 day medication with 1 refill, atorvastatin as 40 mg daily prescription for 30 day supply 04/04/2020 11:20 AM Provider Ross Morfin MD Department Family Practice [facility] 05/03/2020 11:20 AM Provider Claudia Chen PA-C Department Neurology [facility] (2) Carotid artery disease: Internal carotid artery stenosis (primarily of left carotid artery) -CT a of neck shows left-sided 70-80% stenosis, Patient presents with TIA /strokelike symptoms, Started on dual antiplatelets, statinVascular consult 04/02/2020 -as per 04/02/2020 vascular surgery consult, Dr. Beauchamp: Pt with noted approx 70% stenosis of L ICA on CTA neck. R ICA 30%. R hemispheric sx of possible TIA vs other cause, and no CVA noted on MRI. All sx resolved, and pt feeling well. No indications for vascular surgical intervention at this time. (3) HTN (hypertension): patient can resume home dose blood pressure medications (4) Acute renal failure superimposed on stage 3 chronic kidney disease: Acute Kidney Injury on Chronic Kidney Disease (acute kidney injury resolved) -admission creatinine 1.4, was on IV fluids -renal function has returned to baseline as of 04/02/2020 Type 2 diabetes mellitus without shelter current use of insulin -can resume home dose metformin on discharge CODE STATUS: Full code Total Time Total Time Spent Total Time Spent (In Minutes): 40 minutes Total Time Includes: Examination of the Patient, Discharge Planning, Medication Reconciliation and Communication With Other Providers Discharge Plan Discharge Items Patient Disposition: Home - Self-Care Reason For Visit: TIA Discharge Diagnosis: TIA (transient ischemic attack) Internal carotid artery stenosis (primarily of left carotid artery) Hypertension Type 2 diabetes mellitus without shelter current use of insulin Acute Kidney Injury on Chronic Kidney Disease (acute kidney injury resolved) Activity: Per Instructions section Non-emergency contact: Primary Care Provider and Neurologist Call non-emergency contact if: you have any medication questions Follow-up/Referrals: Ross Morfin MD [Primary Care Provider] - Diet: Carb Consistent or DM2 Addtl Attending Provider Instructions: discharge medications sent electronically to [facility], [place] [address] of plavix (clopidogrel) 75 mg daily for 3 weeks, aspirin as a 30 day medication with 1 refill, atorvastatin as 40 mg daily prescription for 30 day supply 04/04/2020 11:20 AM Provider Ross Morfin MD Department Family Practice [facility] 05/03/2020 11:20 AM Provider Claudia Chen PA-C Department Neurology [facility] Addtl Sample Case Porter Provider Instructions: Vascular consult 04/02/2020, Dr. Beauchamp (Pt with noted approx 70% stenosis of L ICA on CTA neck. R ICA 30%. R hemispheric sx of possible TIA vs other cause, and no CVA noted on MRI. All sx resolved, and pt feeling well. No indications for vascular surgical intervention at this time. Recommend 81mg ASA if no contraindications. Will see in office in 6 months with carotid US for surveillance. Pt agreeable. Please call if needed otherwise.) Neurology consult on 04/02/2020, Dr. Crandall (A 69-year-old male with a history of chronic kidney disease as well as hypertension admitted with a transient ischemic attack. Patient currently back to baseline. MRI brain showed no evidence of an acute ischemic stroke. CTA head and neck did show significant stenosis of the left ICA which is likely an incidental finding. Vascular surgery consulted and recommended maximal medical therapy with follow-up in 6 months. Agree with starting dual antiplatelet for 21 days. Then aspirin 81 mg daily. Recommend high intensity statin, Lipitor 40 mg daily.) Risk Factors for Stroke: You can reduce your chances of stroke by working with your medical provider to adopt a healthy lifestyle. Some specific ways to lower your chance of stroke are: * If you are a smoker, now is the time to stop smoking cigarettes * If you are diabetic, improve the control of your blood sugars * Avoid excessive amounts of alcohol * Control high blood pressure * Lose weight if you are overweight * Be sure to lead an active lifestyle * Eat a healthy diet low in salt, cholesterol and fat You should know about other risk factors for stroke that you are unable to control. These include: * Age 55 years or older * Male gender * Certain racial groups: , or / * Family History of Stroke, Mini stroke or Heart Attack * Sickle Cell Disease Follow Up: It is important for you to keep your follow up appointments with your medical provider. Who to Call and When: Medical Emergencies: Call 911 immediately if you experience any of the following warning signs and symptoms of Stroke: * Sudden numbness or weakness of the face, arm or leg, especially on one side of the body * Sudden confusion, trouble speaking or understanding * Sudden trouble seeing in one or both eyes * Sudden trouble walking, dizziness, loss of balance or coordination * Sudden severe headache with no cause Do not delay calling 911 if you experience any warning signs or symptoms of a stroke. Delay in seeking medical attention may affect what treatments can be given to you. . Pending Studies at Discharge: No Stand-Alone Forms: Medications to Prevent Stroke, My [facility], Smoking Cessation Medications and DC Order Prescriptions: New atorvastatin 40 mg Tablet 40 mg PO QAM 30 Days Qty: 30 RF: 0 clopidogrel 75 mg Tablet 75 mg PO QAM 21 Days Qty: 21 RF: 0 aspirin 81 mg Tablet,Delayed Release (Dr/Ec) 81 mg PO QAM 30 Days Qty: 30 RF: 1 Continued losartan [Cozaar] 50 mg tablet 50 mg PO HS RF: 0 metformin [Glucophage] 500 mg tablet 500 mg PO BIDM RF: 0 amlodipine [Norvasc] 5 mg tablet 5 mg PO QAM RF: 0 hydrochlorothiazide 12.5 mg capsule 12.5 mg PO QAM RF: 0 Discharge Orders: Discharge Order (Routine); Ordered 04/02/20 Ordered By: Chico Norwood/Other Patient Handouts: TIA Admission Data Admit Date/Time: 04/01/20 15:57 Attending Provider: Chico Ramos Admit Provider: Josy Reynolds Primary Care Provider: Ross Morfin Other Providers: Josy Reynolds ; Claudia Chen ; Jono Livingston ; Claudia Scott ; Júnior Crandall ; James Beauchamp
--- NOTE | 2020-04-02 15:51 | Pharmacy Report ---
Pharmacist Stroke Counseling - Date of Service April 02, 2020 - Scope: Pharmacy has been consulted to provide medication discharge counseling for this patient admitted with transient ischemic attack as per the Pharmacist Discharge Counseling for Stroke Patients Protocol. - Medications on Discharge: Home Medications Medication Instructions Recorded Confirmed amlodipine [Norvasc] 5 mg PO QAM 04/01/20 04/01/20 hydrochlorothiazide 12.5 mg PO QAM 04/01/20 04/01/20 losartan [Cozaar] 50 mg PO HS 04/01/20 04/01/20 metformin [Glucophage] 500 mg PO BIDM 04/01/20 04/01/20 New Rx's Medication Instructions Recorded aspirin 81 mg PO QAM 30 Days #30 tab 04/02/20 atorvastatin 40 mg PO QAM 30 Days #30 tab 04/02/20 clopidogrel 75 mg PO QAM 21 Days #21 tab 04/02/20 - Action: The above medications, specifically ones for stroke treatment/prophylaxis, have been reviewed in detail with the patient prior to discharge. This includes indication, common adverse reactions, drug interactions, and medication administration. Medication counseling has been employed using the teach-back method to ensure understanding. - Outcome: The patient has demonstrated understanding of the medications. The patient was given an opportunity to have any/all questions answered during this counseling session. * Counseling was done via phone due to COVID-19 pandemic * Patient was counseled on Aspirin, Atorvastatin, and Clopidogrel * He was understanding to monitor for increased bleeding/bruising * He was understanding of stopping Clopidogrel after 21 days of therapy * He does have follow-up appointments scheduled already * Encouraged patient to call PCP or pharmacist with any further questions Thank you for allowing pharmacy to be involved in the care of this patient. Please call [phone] or [phone] with any additional questions
--- NOTE | 2020-04-02 16:13 | Electrocardiogram Report ---
Test Reason : Blood Pressure : / mmHG Vent. Rate : 061 BPM Atrial Rate : 061 BPM P-R Int : 172 ms QRS Dur : 090 ms QT Int : 434 ms P-R-T Axes : 032 -29 035 degrees QTc Int : 436 ms Normal sinus rhythm Septal infarct , age undetermined Abnormal ECG When compared with ECG of 29-JUL-2017 04:45, Septal infarct is now Present Nonspecific T wave abnormality no longer evident in Lateral leads Confirmed by Hugo Rhoades ([id number]) on 04/02/2020 4:13:37 PM Referred By: REFERRED SELF Confirmed By:Hugo Rhoades
== END 2020-04-02 16:15 | disposition home or self-care (01) | DRG 69 ==
LOC: ED 14:25 → 2N 15:57 → SUATTDRO 15:57 → 2N 16:45